=== PATIENT | female | born 1975 | race Caucasian/White ===

== ENCOUNTER 2023-05-08 11:27 | Outpatient (CLI) | payer OTHER, SELFPAY ==
[2023-05-08 11:51] LABS: Hematocrit 35.4 % (37.0-47.0); Hemoglobin 10.9 g/dL (12.0-15.0)
== END 2023-05-08 11:28 | disposition home or self-care (01) ==
LOC: ANHSURGERY 11:33
PROVIDERS: Visit Provider Student in an Organized Health Care Education/Training Program
DX: N93.9 Abnormal uterine and vaginal bleeding, unspecified (principal)
CPT/HCPCS: 36415; 85014; 85018

== ENCOUNTER 2023-05-14 00:10 | Day surgery (SDC) | payer OTHER, SELFPAY ==
[2023-05-04 15:28] VITALS: BMI 45.7
--- NOTE | 2023-05-04 15:33 | PC.NURSE ---
Report to the Outpatient Waiting Room, entrance under the green pavilion located off [facility], at time 10:45 on date 05/14/23. Planned Procedure Time: 12:45. Time changes happen often and if your time is changed the preop area will call you the afternoon before. - You and your visitor will be asked to self-screen and do not enter if you have any COVID symptoms. - A mask is optional within the hospital at this time. Patients may have clear liquids (water, carbonated beverages, clear teas, apple juice) until 3 hours prior to surgery (9:45) with a maximum of 20 ounces. - No food from midnight until time of surgery Take the following medications with a SIP of water the morning of surgery: TOPIRAMATE DO NOT STOP ANY OF YOUR OTHER PRESCRIPTION MEDICATIONS PRIOR TO SURGERY ?EXCEPT THE FOLLOWING Medications to discontinue per physician: VITAMINS/SUPPLEMENTS Date to take last dose: 05/10/23 Please no make-up, nail indonesian, hairspray, perfume, deodorant, or body powder the day of surgery. No jewelry (including any body piercings) or valuables the day of surgery, leave them at home. Please take a shower or bath the night before, or the morning of, surgery with an antibacterial soap. Wear comfortable, loose fitting clothing. - Jewelry must be removed prior to entering the operating room. Rings and piercings that are not removed may be cut off. - The hospital will not accept responsibility for valuables. - Please leave all valuables, including medications, at home the day of surgery. If you are going home after surgery, a licensed driver salesman must drive you home. - NO public transportation without another adult if you receive anesthesia. - We recommend that an adult stay with you for 24 hours following discharge. - We also recommend that you do not drive, make important decision, drink alcoholic beverages, or take any drugs that were not prescribed by your health care provider for at least 24 hours after your discharge time. Follow any additional instructions given to you from your surgeon. If you or anyone in your household have experienced Covid symptoms in the past week, please notify your surgeon or the nurse liaison at the phone number below for possible testing. Telephone instructions given to PT - MEHNAZ NORRIS and asked if any additional questions and then verbalized understanding. Patient advised to call surgeon office or pre surgery nurse liaison [phone] if any additional questions.
--- NOTE | 2023-05-13 14:56 | PM.IMHP ---
H&P: HPI History of Present Illness Date/Time: 05/13/23 14:56 Chief Complaint: abnormal uterine bleeding Narrative: 47-year-old female who presents for hysteroscopy D&C for abnormal uterine bleeding.? Patient suspected she was menopausal.? Patient had gone several years without any bleeding.? ? Patient had pelvic ultrasound which showed a thickened endometrium and a 2.5 cm fibroid Review of Systems Cardiovascular: Cardiovascular: Denies chest pain, Denies leg edema, Denies palpitations, Denies dyspnea and Denies dyspnea on exertion Respiratory: Respiratory: Denies cough, Denies dyspnea and Denies dyspnea on exertion Gastrointestinal: Gastrointestinal: Denies abdominal pain, Denies constipation, Denies diarrhea, Denies nausea and Denies vomiting Genitourinary: Genitourinary: Denies hematuria, Denies urinary frequency, Denies dysuria, Denies pelvic pain, Denies urinary incontinence and Denies vaginal discharge Neurologic: Reports system reviewed and no additional complaints, except as documented Psychiatric: Psychiatric: Reports no additional psychiatric complaints Endocrine: Endocrine: Denies palpitations PMFSH Past Medical History Medical History Ankylosing hyperostosis Surgical History Surgical History History of delivery Family History Family History Mother Hypertension Grandparent Breast cancer Diabetes mellitus Father Diabetes mellitus Social History Social History Smoking packs per day: 1 Smoking cigarettes per day: 20.0 Years smoked: 28 Smoking pack-years: 28.00 Smoking status: Former smoker Tobacco type: cigarettes Smoking end date: 08/03/16 Alcohol intake: never Substance use: current Substance use type: marijuana Lack of Transportation: No Lack of Food: Never True Current Housing: I Have Housing Concerned About Future Housing: No Difficulty Paying Gas/Electric Bills: No Difficulty Paying for Meds: No Currently Unemployed: No Education: High School Diploma/GED Difficulty w/ Childcare or Family Care: No Living arrangements: with family Additional living arrangements comments: MOM Occupation/Education: occupation Gender identity (if verbalized by the patient): Female Sexual Orientation (if Verbalized by the Patient): Straight or Heterosexual Spiritual care concerns: No Meds Home Medications and Allergies Home Medications Medication Instructions Recorded Confirmed Type etanercept 50 mg/mL (1 mL) 50 mg subcut WEEKLY 04/21/23 05/04/23 History subcutaneous pen injector (Enbrel SureClick) lurasidone 80 mg tablet 80 mg PO HS 04/21/23 05/04/23 History meloxicam 15 mg tablet 15 mg PO DAILY 04/21/23 05/04/23 History mirabegron 25 mg tablet,extended 25 mg PO HS 04/21/23 05/04/23 History release 24 hr (Myrbetriq) omeprazole 40 mg capsule,delayed 40 mg PO DAILY 04/21/23 05/04/23 History release rizatriptan 10 mg tablet 10 mg PO ONCE PRN Migraine Headache 04/21/23 05/04/23 History sertraline 100 mg tablet 100 mg PO HS 04/21/23 05/04/23 History topiramate 100 mg tablet 100 mg PO BID 04/21/23 05/04/23 History krill oil 500 mg capsule 500 mg PO DAILY 05/04/23 05/04/23 History rosuvastatin 5 mg tablet (Crestor) 5 mg PO DAILY 05/04/23 05/04/23 History Allergies Allergy/AdvReac Type Severity Reaction Status Date / Time aspirin AdvReac Mild Nausea Verified 05/13/23 14:40 Exam Const: General: no acute distress Eyes: EOM: EOMs intact bilaterally Neck: Neck: supple Thyroid: thyroid normal Chest: Breast/axilla inspection: normal inspection of the breasts Breast/axilla palpation: normal palpation of the breasts, normal palpation of the axillae and no axillary lymphadenopathy Resp: Effort & Inspection: norm
[2023-05-14] MEDS: ACETAMINOPHEN 500 MG TABLET 1000 MG PO (11:15)
--- NOTE | 2023-05-14 11:20 | WPDHPUPDATE1 ---
History and Physical Update Update Date/Time: 05/14/23 11:20 History and Physical has been reviewed, including an updated exam of the patient. There are NO changes in the patient's condition. Risks, benefits, and alternatives have been discussed and questions answered. Patient agrees to proceed with procedure.
--- NOTE | 2023-05-14 11:50 | WPDANESEPPF ---
Anes - Initial Pre Proc Eval Procedure: Operation Date: 05/14/23 12:45 Proposed Procedures p Hysteroscopy, Dilation and Curettage - Pasha Walters MD Date/Time: 05/14/23 11:50 Surgeon: Pasha Walters MD Pre Op Diagnosis: post menopausal bleeding Patient Data Age: 47 Gender: F Height: 1.74 m Weight: 138.35 kg Allergies Allergy/AdvReac Type Severity Reaction Status Date / Time aspirin AdvReac Mild Nausea Verified 05/13/23 14:40 Home Medications Medication Instructions Recorded Confirmed Type etanercept 50 mg/mL (1 mL) 50 mg subcut WEEKLY 04/21/23 05/04/23 History subcutaneous pen injector (Enbrel SureClick) lurasidone 80 mg tablet 80 mg PO HS 04/21/23 05/04/23 History meloxicam 15 mg tablet 15 mg PO DAILY 04/21/23 05/04/23 History mirabegron 25 mg tablet,extended 25 mg PO HS 04/21/23 05/04/23 History release 24 hr (Myrbetriq) omeprazole 40 mg capsule,delayed 40 mg PO DAILY 04/21/23 05/04/23 History release rizatriptan 10 mg tablet 10 mg PO ONCE PRN Migraine Headache 04/21/23 05/04/23 History sertraline 100 mg tablet 100 mg PO HS 04/21/23 05/04/23 History topiramate 100 mg tablet 100 mg PO BID 04/21/23 05/04/23 History krill oil 500 mg capsule 500 mg PO DAILY 05/04/23 05/04/23 History rosuvastatin 5 mg tablet (Crestor) 5 mg PO DAILY 05/04/23 05/04/23 History Patient hx anesthesia problems: none Family hx anesthesia problems: none Results Review: All pre-operative results and documents have been reviewed as part of the pre-operative evaluation. [facility] Past Medical History Medical History Ankylosing hyperostosis Surgical History Surgical History History of delivery Family History Family History Mother Hypertension Grandparent Breast cancer Diabetes mellitus Father Diabetes mellitus Social History Social History Smoking packs per day: 1 Smoking cigarettes per day: 20.0 Years smoked: 28 Smoking pack-years: 28.00 Smoking status: Former smoker Tobacco type: cigarettes Smoking end date: 08/03/16 Alcohol intake: never Substance use: current Substance use type: marijuana Lack of Transportation: No Lack of Food: Never True Current Housing: I Have Housing Concerned About Future Housing: No Difficulty Paying Gas/Electric Bills: No Difficulty Paying for Meds: No Currently Unemployed: No Education: High School Diploma/GED Difficulty w/ Childcare or Family Care: No Living arrangements: with family Additional living arrangements comments: MOM Occupation/Education: occupation Gender identity (if verbalized by the patient): Female Sexual Orientation (if Verbalized by the Patient): Straight or Heterosexual Spiritual care concerns: No Anes - Eval Final PreProcedure Day of Procedure 05/14/23 11:50 Patient weight: morbidly obese Heart: regular rate and rhythm Lungs: clear to auscultation Airway: Mallampati scale class III Neurological: alert and oriented Last oral intake: >/= 8 hours ASA classification: III Emergent: no Anesthetic plan: proceed Anesthesia type and monitoring: general GIVS (may use LMA if needed) Results Review: All pre-operative results and documents have been reviewed as part of the pre-operative evaluation. Informed Consent: The patient's anesthetic plan and its attendant risks and benefits were discussed with the patient/family/POA. Questions were solicited and answers provided to the satisfaction of the patient/family/POA.
[2023-05-14 11:58] VITALS: BP 148/78; PULSE 70; RESP 16; TEMP 36; O2SAT 99
[2023-05-14] MEDS: LACTATED RINGERS 1,000 ML 30 ML IV CONT (12:00)
--- NOTE | 2023-05-14 12:24 | P.OP_ITS ---
Procedure Note - Detailed Date of Procedure 05/14/23 Pre-op Diagnosis post menopausal bleeding Post-op Diagnosis Same Procedure Performed paracervical block hysteroscopy dilation & curettage Surgeon Pasha Walters MD Anesthesia General Indications abnormal uterine bleeding Findings Sharply anteverted uterus, difficult to access cervix. globally thickened endometrium with polypoid appearing masses. Description of Procedure Crissy Smith presents for the above procedure for abnormal uterine bleeding. She was counseled as to the indications, risks, benefits, and alternatives to surgery, with the risks including bleeding, infection, damage to surrounding organs, VTE, and complications of anesthesia. Her verbal and written consent was obtained. PROCEDURE: The patient was taken to the OR and general anesthesia induced. She was prepped and draped in Elvis stirrups with support of the back and bilateral lower extremities. I/O catheterization performed of the bladder. The above findings were noted. I nfiltration with 1% lidocaine at the 3 and 9 o'clock cervical positions was performed. A single tooth tenaculum was placed on the anterior lip of the cervix. Hysteroscopy, using a normal saline medium, was performed and showed the above findings. Sharp uterine curettage was then performed and tissue placed on Telfa. The tenaculum was removed and hemostasis was observed. The patient tolerated the procedure well. Sponge, lap, and needle counts were correct. The patient had SCD's on throughout the case for VTE prophylaxis. The patient was taken to the recovery room in stable condition. Estimated Blood Loss 10 Drains No Packing No Pathology Yes (endometrial curettings ) Complications No immediate complications Condition Stable Disposition PACU [facility] Billing Surgery - Charge Forward: Surgery Billing
[2023-05-14] MEDS: LIDOCAINE HCL 1% LOCAL INJ 20 ML VIAL 10 ML INFILTRATE (12:42)
[2023-05-14 12:55] VITALS: BP 146/61; PULSE 75; RESP 15; O2SAT 97
[2023-05-14 13:25] VITALS: BP 134/74; PULSE 63; RESP 15
[2023-05-14 13:55] VITALS: BP 130/71; PULSE 60; RESP 15
== END 2023-05-14 14:08 | disposition home or self-care (01) ==
PROVIDERS: Visit Provider Student in an Organized Health Care Education/Training Program
PROC: 0U5B8ZZ Destruction of Endometrium, Via Natural or Artificial Opening Endoscopic (ICD-10-PCS; CPT 58563; principal; 2023-05-14 12:45)
DX: N93.9 Abnormal uterine and vaginal bleeding, unspecified (principal); Z87.891 Personal history of nicotine dependence
CPT/HCPCS: 58558; 88305; A9270; J2250; J2405; J2704; J3010; J7120

== ENCOUNTER 2023-09-07 12:38 | Outpatient (CLI) | payer OTHER, SELFPAY ==
--- NOTE | 2023-09-07 13:07 | ECG_ITS ---
Measurements Intervals [place] Rate: 68 P: 21 DE: 143 QRS: 20 QRSD: 94 T: 47 QT: 382 QTc: 408 Interpretive Statements SINUS RHYTHM WITHIN NORMAL LIMITS NO PREVIOUS ECG AVAILABLE FOR COMPARISON Electronically Signed On 09-07-2023 16:59:34 RESEARCH TECH by Sanjay Rico M.D.
[2023-09-07 13:26] LABS: Hematocrit 41.3 % (37.0-47.0); Hemoglobin 12.9 g/dL (12.0-15.0); Mean Corpuscular HGB Conc 31.2 g/dl (32-36); Mean Corpuscular Hemoglobin 25.2 pg (26-34); Mean Corpuscular Volume 80.7 fl (80-100); Mean Platelet Volume 8.8 fl (7.4-10.4); Platelet Count Result 329 k/mm3 (150-375); Red Blood Count 5.12 M/mm3 (4.2-5.4); Red Cell Distribution Width 16.6 % (11.5-14.5)
== END 2023-09-07 12:39 | disposition home or self-care (01) ==
LOC: ANHSURGERY 12:44
PROVIDERS: Visit Provider Student in an Organized Health Care Education/Training Program
DX: E78.00 Pure hypercholesterolemia, unspecified (principal); N93.9 Abnormal uterine and vaginal bleeding, unspecified; Z01.818 Encounter for other preprocedural examination
CPT/HCPCS: 36415; 85027; 86850; 86900; 86901; 93005

== ENCOUNTER 2023-09-16 00:23 | Day surgery (SDC) | payer OTHER, SELFPAY ==
[2023-09-04 11:14] VITALS: BMI 43.5
--- NOTE | 2023-09-04 11:20 | PC.NURSE ---
Report to the Outpatient Waiting Room, entrance under the green pavilion located off [facility], at time 6:00 on date 09/16/23. Planned Procedure Time: 7:30. Time changes happen often and if your time is changed the preop area will call you the afternoon before. - You and your visitor will be asked to self-screen and do not enter if you have any COVID symptoms. - A mask is optional within the hospital at this time. Patients may have clear liquids (water, carbonated beverages, clear teas, apple juice) until 3 hours prior to surgery (4:30) with a maximum of 20 ounces. - No food from midnight until time of surgery Take the following medications with a SIP of water the morning of surgery: FLUOXETINE, LAMOTRIGINE, TOPIRAMATE, NORETHINDRONE DO NOT STOP ANY OF YOUR OTHER PRESCRIPTION MEDICATIONS PRIOR TO SURGERY ?EXCEPT THE FOLLOWING Medications to discontinue per physician: VITAMINS/SUPPLEMENTS Date to take last dose: 09/12/23 Please no make-up, nail south sudanese, hairspray, perfume, deodorant, or body powder the day of surgery. No jewelry (including any body piercings) or valuables the day of surgery, leave them at home. Please take a shower or bath the night before, or the morning of, surgery with an antibacterial soap. Wear comfortable, loose fitting clothing. - Jewelry must be removed prior to entering the operating room. Rings and piercings that are not removed may be cut off. - The hospital will not accept responsibility for valuables. - Please leave all valuables, including medications, at home the day of surgery. If you are going home after surgery, a licensed show horse driver must drive you home. - NO public transportation without another adult if you receive anesthesia. - We recommend that an adult stay with you for 24 hours following discharge. - We also recommend that you do not drive, make important decision, drink alcoholic beverages, or take any drugs that were not prescribed by your health care provider for at least 24 hours after your discharge time. Follow any additional instructions given to you from your surgeon. If you or anyone in your household have experienced Covid symptoms in the past week, please notify your surgeon or the nurse liaison at the phone number below for possible testing. Telephone instructions given to PT - MEHNAZ NORRIS and asked if any additional questions and then verbalized understanding. Patient advised to call surgeon office or pre surgery nurse liaison [phone] if any additional questions.
--- NOTE | 2023-09-15 08:02 | PM.IMHP ---
H&P: HPI History of Present Illness Date/Time: 09/15/23 08:02 Chief Complaint: Abnormal uterine bleeding Narrative: 47-year-old female who presents with complaint of abnormal uterine bleeding patient has been dealing with abnormal uterine bleeding for some time.? Patient is status post hysteroscopy D&C for abnormal bleeding.? Patient endometrial curettings were benign.? Patient currently taking progesterone only pill.? Patient states she continues to have breakthrough bleeding.? Patient states her bleeding profile will vary.? Some days are very heavy and others are light spotting.? Patient? states she is bleeding more days than.? Patient is requesting definitive therapy via hysterectomy. Review of Systems Cardiovascular: Cardiovascular: Denies chest pain, Denies leg edema, Denies palpitations, Denies dyspnea and Denies dyspnea on exertion Respiratory: Respiratory: Denies cough, Denies dyspnea and Denies dyspnea on exertion Gastrointestinal: Gastrointestinal: Denies abdominal pain, Denies constipation, Denies diarrhea, Denies nausea and Denies vomiting Genitourinary: Genitourinary: Denies hematuria, Denies urinary frequency, Denies dysuria, Denies pelvic pain, Denies urinary incontinence and Denies vaginal discharge Neurologic: Reports system reviewed and no additional complaints, except as documented Psychiatric: Psychiatric: Reports no additional psychiatric complaints Endocrine: Endocrine: Denies palpitations [facility] Past Medical History Medical History (Updated 09/02/23 @ 09:54 by Bree Milian CMA) Ankylosing hyperostosis Screening mammogram for breast cancer Surgical History Surgical History History of delivery History of hysteroscopy D & C Family History Family History Mother Hypertension Grandparent Breast cancer Diabetes mellitus Father Diabetes mellitus Social History Social History Smoking packs per day: 1 Smoking cigarettes per day: 20.0 Years smoked: 28 Smoking pack-years: 28.00 Smoking status: Never smoker Tobacco type: cigarettes Smoking end date: 08/03/16 Alcohol intake: never Substance use: current Substance use type: marijuana Lack of Transportation: No Lack of Food: Never True Current Housing: I Have Housing Concerned About Future Housing: No Difficulty Paying Gas/Electric Bills: No Difficulty Paying for Meds: No Currently Unemployed: No Education: High School Diploma/GED Difficulty w/ Childcare or Family Care: No Living arrangements: with family Additional living arrangements comments: MOM Occupation/Education: occupation Gender identity (if verbalized by the patient): Female Sexual Orientation (if Verbalized by the Patient): Straight or Heterosexual Spiritual care concerns: No Meds Home Medications and Allergies Home Medications Medication Instructions Recorded Confirmed Type etanercept 50 mg/mL (1 mL) 50 mg subcut WEEKLY 04/21/23 09/04/23 History subcutaneous pen injector (Enbrel SureClick) meloxicam 15 mg tablet 15 mg PO DAILY 04/21/23 09/04/23 History mirabegron 25 mg tablet,extended 25 mg PO HS 04/21/23 09/04/23 History release 24 hr (Myrbetriq) omeprazole 40 mg capsule,delayed 40 mg PO DAILY 04/21/23 09/04/23 History release rizatriptan 10 mg tablet 10 mg PO ONCE PRN Migraine Headache 04/21/23 09/04/23 History topiramate 100 mg tablet 100 mg PO BID 04/21/23 09/04/23 History krill oil 500 mg capsule 500 mg PO DAILY 05/04/23 09/04/23 History rosuvastatin 5 mg tablet (Crestor) 5 mg PO DAILY 05/04/23 09/04/23 History norethindrone (contraceptive) 0.35 0.35 mg PO DAILY #84 tabs 06/02/23 09/04/23 Rx mg tablet fluoxetine 40 mg capsule 40 mg PO DAILY 08/12/23 09/04/23 History lamotrigine 25 mg tablet 50 mg PO DAILY 08/12/23 09/04/23 History
--- NOTE | 2023-09-15 14:59 | WPDANESEPPF ---
Anes - Initial Pre Proc Eval Procedure: Operation Date: 09/16/23 07:30 Proposed Procedures p Robotic Assisted Total Laparoscopic Hysterectomy with Bilateral Salpingectomy - Pasha Walters MD Date/Time: 09/15/23 14:59 Surgeon: Pasha Walters MD Pre Op Diagnosis: abnormal uterine bleeding Patient Data Age: 47 Gender: F Height: 1.75 m Weight: 133.8 kg Allergies Allergy/AdvReac Type Severity Reaction Status Date / Time aspirin AdvReac Mild Nausea Verified 09/04/23 11:10 Home Medications Medication Instructions Recorded Confirmed Type etanercept 50 mg/mL (1 mL) 50 mg subcut WEEKLY 04/21/23 09/04/23 History subcutaneous pen injector (Enbrel SureClick) meloxicam 15 mg tablet 15 mg PO DAILY 04/21/23 09/04/23 History mirabegron 25 mg tablet,extended 25 mg PO HS 04/21/23 09/04/23 History release 24 hr (Myrbetriq) omeprazole 40 mg capsule,delayed 40 mg PO DAILY 04/21/23 09/04/23 History release rizatriptan 10 mg tablet 10 mg PO ONCE PRN Migraine Headache 04/21/23 09/04/23 History topiramate 100 mg tablet 100 mg PO BID 04/21/23 09/04/23 History krill oil 500 mg capsule 500 mg PO DAILY 05/04/23 09/04/23 History rosuvastatin 5 mg tablet (Crestor) 5 mg PO DAILY 05/04/23 09/04/23 History norethindrone (contraceptive) 0.35 0.35 mg PO DAILY #84 tabs 06/02/23 09/04/23 Rx mg tablet fluoxetine 40 mg capsule 40 mg PO DAILY 08/12/23 09/04/23 History lamotrigine 25 mg tablet 50 mg PO DAILY 08/12/23 09/04/23 History phentermine 37.5 mg capsule 37.5 mg PO DAILY 08/12/23 09/04/23 History ferrous sulfate 325 mg (65 mg 325 mg PO DAILY 09/04/23 09/04/23 History iron) tablet (Iron (ferrous sulfate)) Patient hx anesthesia problems: none Family hx anesthesia problems: none Results Review: All pre-operative results and documents have been reviewed as part of the pre-operative evaluation. [facility] Past Medical History Medical History (Updated 09/15/23 @ 14:59 by Teo Mina DO) Ankylosing hyperostosis Bipolar disorder Hyperlipidemia TORI (obstructive sleep apnea) Screening mammogram for breast cancer Surgical History Surgical History History of delivery History of hysteroscopy D & C Family History Family History Mother Hypertension Grandparent Breast cancer Diabetes mellitus Father Diabetes mellitus Social History Social History (Updated 09/16/23 @ 07:08 by Teo Mina DO) Smoking packs per day: 1 Smoking cigarettes per day: 20.0 Years smoked: 28 Smoking pack-years: 28.00 Smoking status: Never smoker Tobacco type: cigarettes Smoking end date: 08/03/16 Alcohol intake: never Substance use: current Substance use type: marijuana Other substance usage details: daily Lack of Transportation: No Lack of Food: Never True Current Housing: I Have Housing Concerned About Future Housing: No Difficulty Paying Gas/Electric Bills: No Difficulty Paying for Meds: No Currently Unemployed: No Education: High School Diploma/GED Difficulty w/ Childcare or Family Care: No Living arrangements: with family Additional living arrangements comments: MOM Occupation/Education: occupation Gender identity (if verbalized by the patient): Female Sexual Orientation (if Verbalized by the Patient): Straight or Heterosexual Spiritual care concerns: No Anes - Eval Final PreProcedure Day of Procedure 09/15/23 14:59 Patient weight: morbidly obese Heart: regular rate and rhythm Lungs: clear to auscultation Airway: Mallampati scale class II Neurological: alert and oriented Last oral intake: >/= 8 hours ASA classification: III Emergent: no Anesthetic plan: proceed Anesthesia type and monitoring: general ETT and standard monitoring Results Review: All pre-operative results and documents have been reviewed as part of t
[2023-09-16] VITALS (9 sets, daily range): BP systolic 121–159; BP diastolic 56–84; PULSE 64–85; RESP 10–19; TEMP 36.3–37.2; O2SAT 96–100
[2023-09-16] MEDS: LACTATED RINGERS 1,000 ML 30 ML IV CONT ×2 (06:45→09:45)
[2023-09-16] MEDS: ACETAMINOPHEN 500 MG TABLET 1000 MG PO (07:00)
[2023-09-16] MEDS: KETOROLAC 15 MG/ML VIAL (*BKC) IV PUSH (07:00)
[2023-09-16] MEDS: SCOPOLAMINE 1 MG PATCH 1 PATCH TRANSDERM (07:00)
--- NOTE | 2023-09-16 07:01 | WPDHPUPDATE1 ---
History and Physical Update Update Date/Time: 09/16/23 07:01 History and Physical has been reviewed, including an updated exam of the patient. There are NO changes in the patient's condition. Risks, benefits, and alternatives have been discussed and questions answered. Patient agrees to proceed with procedure.
[2023-09-16] MEDS: ceFAZolin 3 GM/D5W 100 ML 100 ML IVPB (07:30)
[2023-09-16] MEDS: LIDO 1%/EPINEPHRINE 1:100,000 50 ML VIAL 30 ML INFILTRATE (08:28)
--- NOTE | 2023-09-16 08:51 | W.PM.PROC2 ---
Procedure Note - Detailed Date of Procedure 09/16/23 Pre-op Diagnosis abnormal uterine bleeding Post-op Diagnosis Same Procedure Performed robotic assisted total laparoscopic hysterectomy and bilateral salpingectomy Surgeon Pasha Walters MD Anesthesia General Indications AUB Findings anterior uterine serosa adherent to the anterior abdominal wall, normal appearing bilateral fallopian tubes and ovaries, filmy bowel adhesions between the bowel and the right abdominal side wall Description of Procedure After the patient was appropriately consented she was taken to the operating room where she was transferred to the table in a dorsal supine position. General anesthesia was then induced with endotracheal intubation. The patient was transferred to a dorsal lithotomy position using adjustable yellow-fin stirrups. Her position was adjusted for appropriate support of her lower back and lower extremities. The patient was prepped and draped. A transurethral kelly catheter was place. The cervix was sequentially dilated and a SEGUNDO uterine manipulator placed in typical fashion about a 3cm SLIME ring. Gloves were changed. After confirmation of a functioning orogastric tube, lidocaine was injected at Mcgrath's point in the LUQ and a 5mm incision was made. A 5mm Optiview trocar was then inserted into the abdominal cavity under direct visualization and done so without complication. The abdomen was then insufflated with approximately 2-3L of CO2 establishing a pneumoperitoneum and the patient was placed in Trendelenburg position. Just above the umbilicus in the midline, a 8 mm incision made after injection of lidocaine and a 8 mm bladeless trocar advanced into the abdominal cavity under direct visualization without incident. We subsequently placed two robotic ports in a similar fashion, one in the left mid-quadrant and one in the right, 10cm lateral to the midline port. The robot was then docked. Attention was turned to the left pelvis. The anterior uterine serosa was noted to be adherent to the abdominal wall. This adhesion was taken down with monopolar scissors. The left fallopian tube was removed by sequentially dividing the mesosalpinx towards the uterus sparing the ovary. The utero-ovarian ligament was desiccated and transected, as was the round ligament. The posterior peritoneal leaf was taken down to the SLIME ring. The anterior leaf was developed as well as the start of the bladder flap. The left uterine artery was then skeletonized and desiccated and transected just above the level of the SLIME ring. Attention was turned to the right pelvis. The right fallopian tube was removed by sequentially dividing the mesosalpinx towards the uterus sparing the ovary. The utero-ovarian ligament was desiccated and transected, as was the round ligament. The posterior peritoneal leaf was taken down to the SLIME ring. The anterior leaf was developed as well as the start of the bladder flap. The right uterine artery was then skeletonized and desiccated and transected just above the level of the SLIME ring. The bladder was then further dissected inferiorly over the level of the SLIME ring. A circumferential colpotomy was made using monopolar current. The uterus, cervix, bilateral tubes were then delivered transvaginally. I then placed a single figure of eight suture of 0-vicryl in the left corner of the vaginal cuff. I then re-approximated the colpotomy with a running #1 PDO Quill suture in 2 layers. Following this dissection, the abdomen and pelvis were copiously irrigated and all surgical sites found to be hemostatic. Skin sites were reapproximated with 4-0 Vicryl in a subcuticular fashion. Steri-Strips were placed. The patient tolerated the procedure well. Sponge, needle and instrument counts were correct x 2 and the patient was taken to recovery in stable condition. Ancef was given for antimicrobial prophylaxis. The patient had SCD's on for VTE prophylaxis during the entire procedure. Ludivina
[2023-09-16] MEDS: fentaNYL CITRATE INJ (*CRX) 100 MCG/2 ML VIAL 25 MCG IV PUSH (09:27)
[2023-09-16] MEDS: ONDANSETRON INJ 4 MG/2 ML VIAL IV PUSH (09:47)
--- NOTE | 2023-09-16 12:14 | PC.NURSE ---
On 09/16/23, the student, Chiquis Lindsey, provided care and completed [facility] documentation on this patient. I have reviewed the student's documentation and agree with the findings.
[2023-09-16] MEDS: TOPIRAMATE 100 MG TABLET PO ×2 (13:52→21:35)
[2023-09-16] MEDS: SIMETHICONE 80 MG TAB.CHEW PO ×2 (13:52→21:42)
[2023-09-16] MEDS: MELOXICAM 7.5 MG TABLET 15 MG PO (14:28)
--- NOTE | 2023-09-16 14:30 | PC.NURSE ---
Kenny catheter discontinued 1430
[2023-09-16] MEDS: oxyCODONE/ACETAMINOPHEN (*CRX) 5-325 MG TABLET 1 TABLET PO ×2 (15:40→21:36)
[2023-09-16] MEDS: ROSUVASTATIN 5 MG TABLET PO (21:34)
[2023-09-16] MEDS: lamoTRIgine 50 MG TABLET PO (21:35)
[2023-09-16] MEDS: SENNA/DOCUSATE SODIUM TABLET 2 TAB PO (21:35)
[2023-09-16] MEDS: busPIRone HCL 10 MG TABLET PO (21:36)
[2023-09-17] MEDS: oxyCODONE/ACETAMINOPHEN (*CRX) 5-325 MG TABLET 1 TABLET PO ×2 (01:40→07:12)
[2023-09-17 04:00] VITALS: BP 128/60; PULSE 53; RESP 18; TEMP 36.4; O2SAT 99
[2023-09-17 04:44] LABS: Basophils Absolute Auto 0.1 K/mm3 (0.0-0.1); Basophils Percent Auto 0.3 % (0.2-1.2); Eosinophils Percent Auto 0.2 % (0-4.4); Hematocrit 39.8 % (37.0-47.0); Immature Granulocyte Absolute 0.09 K/mm3 (0.00-0.031); Immature Granulocyte Percent A 0.5 % (0-0.5); Immature Platelet Fraction Pct 2.7 % (0.9-11.2); Lymphocytes Absolute Auto 4.21 K/mm3 (0.9-3.2); Lymphocytes Percent Auto 23.1 % (18.3-44.2); Mean Corpuscular HGB Conc 30.2 g/dl (32-36); Mean Corpuscular Hemoglobin 25.2 pg (26-34); Mean Corpuscular Volume 83.6 fl (80-100); Mean Platelet Volume 9.5 fl (7.4-10.4); Monocytes Absolute Auto 1.3 K/mm3 (0.1-0.6); Monocytes Percent Auto 6.8 % (2.6-8.5); Neutrophils Absolute Auto 12.6 K/mm3 (1.3-6.7); Neutrophils Percent Auto 69.1 % (45.5-73.1); Platelet Count Result 282 k/mm3 (150-375); Red Blood Count 4.76 M/mm3 (4.2-5.4); Red Cell Distribution Width 16.2 % (11.5-14.5); White Blood Count 18.3 K/mm3 (4.5-10.0)
[2023-09-17 04:51] LABS: Anion Gap 9 mmol/L (8-16); Blood Urea Nitrogen 13 mg/dL (7-17); Calcium 9.3 mg/dL (8.4-10.2); Carbon Dioxide 23 mmol/L (22-30); Chloride 109 mmol/L (98-107); Estimated CRCL calculation 100 ml/min; Estimated Glomerular Filt Rate > 60; Glucose 104 mg/dL (65-110); Sodium 141 mmol/L (137-145)
--- NOTE | 2023-09-17 08:11 | PM.DS ---
DS: Admitting Diagnosis Discharge Date 09/17/23 Admitting Diagnosis abnormal uterine bleeding DS: Discharge Diagnosis Discharge Diagnosis (1) Abnormal uterine bleeding: Code(s): N93.9 - Abnormal uterine and vaginal bleeding, unspecified Status: Acute DS: Summary Hospital Course Hospital Course: Patient was admitted after robotic assisted total laparoscopic hysterectomy and bilateral salpingectomy for abnormal uterine bleeding. The above procedure was performed with no complications. She is doing well post op. She states her pain is well controlled with PO medications. She reports minimal bleeding. She is ambulating up to the chair. Her kelly catheter was removed. She is tolerating PO without N/V. She reports passing flatus. Status at Discharge Overall status at discharge: patient is progressing back to baseline Time Spent with Patient Time attestation: Total time spent providing and/or coordinating discharge services: Time spent: Less than 30 minutes Exam Const: General: comfortable and no acute distress Limitations: no limitations Resp: Effort & Inspection: normal respiratory effort Auscultation: clear to auscultation bilaterally Cardio: Rate: regular rate Rhythm: regular rhythm GI: Inspection: non-distended GI Palp: Yes Soft to palpation, Yes Tenderness to palpation present (GI) (milder tenderness to deep palpation) and No Guarding due to palpation present (GI) Auscultation: normal bowel sounds Other: incisions C/D/I covered with dermabond Urinary Catheter: Urinary Catheter: urine clear Skin: General skin exam: normal color Extrem: General: normal to inspection Psych: Mental Status: mental status grossly normal Affect: normal affect DS: Data Data Completed and Pending Pending studies at discharge: Pending at discharge 09/16/23 08:36 Surgical [PTH] Routine Labs on day of discharge: Labs from last 24 hours 09/17/23 03:51 WBC 18.3 H RBC 4.76 Hgb 12.0 Hct 39.8 MCV 83.6 MCH 25.2 L MCHC 30.2 L RDW 16.2 H Plt Count 282 MPV 9.5 Immature Gran % (Auto) 0.5 Neut % (Auto) 69.1 Lymph % (Auto) 23.1 [place] % (Auto) 6.8 Eos % (Auto) 0.2 Baso % (Auto) 0.3 Lymph # (Auto) 4.21 H [place] # (Auto) 1.3 H Eos # (Auto) 0.0 Baso # (Auto) 0.1 Abs Immat Gran (auto) 0.09 H Absolute Neuts (auto) 12.6 H Absolute Nucleated RBC 0.0 Nucleated RBC % 0.0 % Immature Plt Fraction 2.7 Sodium 141 Potassium 4.0 Chloride 109 H Carbon Dioxide 23 Anion Gap 9 BUN 13 Creatinine 0.90 Estim Creat Clear Calc 100 Estimated GFR > 60 Glucose 104 Calcium 9.3 Discharge Plan Discharge Patient Disposition: Home, Self-Care Patient Instructions: Laparoscopic Hysterectomy (DC) Stand Alone Forms: General Discharge Instructions Follow-up/Referrals: Pasha Walters MD [Physician] - 2 Weeks Discharge Medications: New oxycodone-acetaminophen 5-325 mg tablet 1 tablet PO Q6H PRN (Reason: pain) Qty: 28 0RF Continued topiramate 100 mg tablet 100 mg PO BID omeprazole 40 mg capsule,delayed release(DR/EC) 40 mg PO DAILY Myrbetriq 25 mg tablet extended release 24 hr 25 mg PO HS Enbrel SureClick 50 mg/mL (1 mL) pen injector 50 mg subcut WEEKLY Patient Comments: PT TAKES ON THURSDAY meloxicam 15 mg tablet 15 mg PO DAILY rizatriptan 10 mg tablet 10 mg PO ONCE PRN (Reason: Migraine Headache) phentermine 37.5 mg capsule 37.5 mg PO DAILY fluoxetine 40 mg capsule 40 mg PO DAILY lamotrigine 25 mg tablet 50 mg PO DAILY rosuvastatin [Crestor] 5 mg Tablet 5 mg PO DAILY krill oil 500 mg Capsule 500 mg PO DAILY ferrous sulfate [Iron (ferrous sulfate)] 325 mg (65 mg iron) Tablet 325 mg PO DAILY norethindrone (contraceptive) 0.35 mg tablet 0.35 mg PO DAILY Qty: 84 3RF
[2023-09-17 09:00] VITALS: BP 114/53; PULSE 60; RESP 18; TEMP 36.9; O2SAT 99
--- NOTE | 2023-09-17 10:12 | WPDANESPN ---
Anes - Prog Note Post-Op Date/Time: 09/17/23 10:12 Cardiovascular status: normal Respiratory status: normal Airway patency: baseline Mental status: baseline Post-Op hydration status: normal Vital Signs: Last Vital Signs Temp 36.9 C 09/17/23 09:00 Pulse 60 09/17/23 09:00 Resp 18 09/17/23 09:00 BP 114/53 L 09/17/23 09:00 Pulse Ox 99 09/17/23 09:00 O2 Del Method Room Air 09/17/23 07:00 O2 Flow Rate 8 09/16/23 09:20 Pain Score (VAS): 11/10 I/O: Intake & Output 09/16/23 09/17/23 09/17/23 23:59 07:59 15:59 Output Total 600 Balance -600 Laboratory Tests 09/17/23 03:51 09/17/23 03:51 09/17/23 03:51 WBC 18.3 H RBC 4.76 Hgb 12.0 Hct 39.8 MCV 83.6 MCH 25.2 L MCHC 30.2 L RDW 16.2 H Plt Count 282 MPV 9.5 Immature Gran % (Auto) 0.5 Neut % (Auto) 69.1 Lymph % (Auto) 23.1 [place] % (Auto) 6.8 Eos % (Auto) 0.2 Baso % (Auto) 0.3 Lymph # (Auto) 4.21 H [place] # (Auto) 1.3 H Eos # (Auto) 0.0 Baso # (Auto) 0.1 Abs Immat Gran (auto) 0.09 H Absolute Neuts (auto) 12.6 H Absolute Nucleated RBC 0.0 Nucleated RBC % 0.0 % Immature Plt Fraction 2.7 Sodium 141 Potassium 4.0 Chloride 109 H Carbon Dioxide 23 Anion Gap 9 BUN 13 Creatinine 0.90 Estim Creat Clear Calc 100 Estimated GFR > 60 Glucose 104 Calcium 9.3 Post-procedural complaints: none Patient Feedback: Patient satisfied with anesthetic care.
[2023-09-17] MEDS: busPIRone HCL 10 MG TABLET PO (10:23)
[2023-09-17] MEDS: TOPIRAMATE 100 MG TABLET PO (10:23)
[2023-09-17] MEDS: MELOXICAM 7.5 MG TABLET 15 MG PO (10:23)
[2023-09-17] MEDS: lamoTRIgine 25 MG TABLET PO (10:23)
[2023-09-17] MEDS: PANTOPRAZOLE 40 MG TABLET PO (10:24)
[2023-09-17] MEDS: FLUoxetine HCL 20 MG CAPSULE 60 MG PO (10:24)
== END 2023-09-17 10:52 | disposition home or self-care (01) ==
LOC: ANHSURGERY 06:05 → ANHOB2 11:15
PROVIDERS: Visit Provider Student in an Organized Health Care Education/Training Program
PROC: (CPT 58571; principal; 2023-09-16 07:30)
DX: D25.2 Subserosal leiomyoma of uterus (principal); N93.9 Abnormal uterine and vaginal bleeding, unspecified; N87.9 Dysplasia of cervix uteri, unspecified; N83.8 Other noninflammatory disorders of ovary, fallopian tube and broad ligament; E78.5 Hyperlipidemia, unspecified; G47.33 Obstructive sleep apnea (adult) (pediatric); F31.9 Bipolar disorder, unspecified; M48.10 Ankylosing hyperostosis [Forestier], site unspecified; Z87.891 Personal history of nicotine dependence; F12.90 Cannabis use, unspecified, uncomplicated; E66.01 Morbid (severe) obesity due to excess calories; Z68.41 Body mass index [BMI] 40.0-44.9, adult
CPT/HCPCS: 58571; S2900; 36415; 80048; 85025; 85055; 88307; 99199; A9270; J0330; J0690; J1100; J1170; J1885; J2250; J2405; J2704; J3010; J7030; J7120

== ENCOUNTER 2023-09-25 21:12 | Emergency (ER) | payer OTHER, SELFPAY ==
--- NOTE | ~2023-09-25 | CT_ITS ---
EXAMINATION: CT abdomen pelvis w con DATE: 09/26/2023 09:02 INDICATION: Generalized weakness. Abdominal pain post hysterectomy. Hysterectomy on 09/16/2023. TECHNIQUE: Computed tomography (CT) of the abdomen and pelvis was performed with 100 cc Omnipaque 350 intravenous contrast. The dose-length product was 1519.41 mGy-cm. Automated exposure control and ite rative reconstruction technique were employed. COMPARISON: None. FINDINGS: Lung bases are unremarkable. Heart size normal. No significant pleural or pericardial effus ion. There is free intraperitoneal air, consistent with recent surgery. Status post hysterectomy. Sma ll amount of residual fluid in the pelvis. No abscess. The liver, spleen, pancreas, adrenal glands and kidneys are unremarkable. Gallbladder is present. Non obstructive bowel pattern. Small fat-containing umbilical hernia. No acute osseous abnormality. Moder ate lumbar spondylosis. Gallbladder is present. No significant vascular abnormality. No lymphadenopat hy. IMPRESSION: 1. Small amount of free air and free fluid, likely postoperative. No abscess. Reviewed, dictated and finalized at location A. O CONSULTANT
[2023-09-25 21:18] VITALS: BP 140/84; PULSE 80; RESP 16; TEMP 36.6; O2SAT 98
[2023-09-26 07:20] VITALS: BP 150/84; PULSE 74; RESP 16; TEMP 36.3; O2SAT 99
--- NOTE | 2023-09-26 07:53 | ED.GENADULT ---
HPI - General Adult General Chief complaint: Skin/Abscess/Foreign Body Stated complaint: infected sutures, on abx, not helping Time Seen by Provider: 09/26/23 06:57 History of Present Illness HPI narrative: 47-year-old female presented to the ED for evaluation for possible staph infection. Patient did have a laparoscopic hysterectomy done Diet[facility]' by Dr. Walters. The patient had follow-up with her primary care physician for an unrelated issue and she asked them to evaluate her incisions. Patient was started on antibiotics on for concern of impetigo. Patient states he is still having increased generalized weakness and some abdominal discomfort. Patient has been taking her doxycycline. Related Data Home Medications Medication Instructions Recorded Confirmed etanercept 50 mg/mL (1 mL) 50 mg subcut WEEKLY 04/21/23 09/16/23 subcutaneous pen injector (Enbrel SureClick) meloxicam 15 mg tablet 15 mg PO DAILY 04/21/23 09/16/23 mirabegron 25 mg tablet,extended 25 mg PO HS 04/21/23 09/16/23 release 24 hr (Myrbetriq) omeprazole 40 mg capsule,delayed 40 mg PO DAILY 04/21/23 09/16/23 release rizatriptan 10 mg tablet 10 mg PO ONCE PRN Migraine Headache 04/21/23 09/16/23 topiramate 100 mg tablet 100 mg PO BID 04/21/23 09/16/23 krill oil 500 mg capsule 500 mg PO DAILY 05/04/23 09/16/23 rosuvastatin 5 mg tablet (Crestor) 5 mg PO DAILY 05/04/23 09/16/23 fluoxetine 40 mg capsule 40 mg PO DAILY 08/12/23 09/16/23 lamotrigine 25 mg tablet 50 mg PO DAILY 08/12/23 09/16/23 phentermine 37.5 mg capsule 37.5 mg PO DAILY 08/12/23 09/16/23 ferrous sulfate 325 mg (65 mg 325 mg PO DAILY 09/04/23 09/16/23 iron) tablet (Iron (ferrous sulfate)) Allergies Allergy/AdvReac Type Severity Reaction Status Date / Time aspirin AdvReac Mild Nausea Verified 09/04/23 11:10 hydrocodone AdvReac Agitated Verified 09/16/23 09:36 Review of Systems Review of Systems: All systems reviewed & are unremarkable except as noted in HPI and below PMFSH Past Medical History Medical History (Updated 09/26/23 @ 09:31 by Rolando Gentile MD) Ankylosing hyperostosis Bipolar disorder Hyperlipidemia TORI (obstructive sleep apnea) Screening mammogram for breast cancer Surgical History Surgical History History of delivery History of hysteroscopy D & C Family History Family History Mother Hypertension Grandparent Breast cancer Diabetes mellitus Father Diabetes mellitus Social History Social History (Updated 09/16/23 @ 07:08 by Teo Mina DO) Smoking packs per day: 1 Smoking cigarettes per day: 20.0 Years smoked: 28 Smoking pack-years: 28.00 Smoking status: Never smoker Tobacco type: cigarettes Smoking end date: 08/03/16 Alcohol intake: never Substance use: current Substance use type: marijuana Other substance usage details: daily Lack of Transportation: No Lack of Food: Never True Current Housing: I Have Housing Concerned About Future Housing: No Difficulty Paying Gas/Electric Bills: No Difficulty Paying for Meds: No Currently Unemployed: No Education: High School Diploma/GED Difficulty w/ Childcare or Family Care: No Living arrangements: with family Additional living arrangements comments: MOM Occupation/Education: occupation Gender identity (if verbalized by the patient): Female Sexual Orientation (if Verbalized by the Patient): Straight or Heterosexual Spiritual care concerns: No Exam Narrative: APPEARANCE: Well appearing, no pain, no distress, well-nourished. HEAD: normocephalic, atraumatic. EYES: PERRLA/EOMI, conjunctivae clear. NOSE: Normal no drainage EARS:TMS clear with good light reflex. THROAT: Pharynx clear, no exudate. NECK: Supple. No adenopathy, no masses. RESPIRATORY: Airway patent, respirations nonlabored. Clear to auscu
[2023-09-26 08:29] LABS: Basophils Absolute Auto 0.1 K/mm3 (0.0-0.1); Basophils Percent Auto 0.7 % (0.2-1.2); Eosinophils Absolute Auto 0.5 K/mm3 (0-0.3); Eosinophils Percent Auto 3.3 % (0-4.4); Hematocrit 40.3 % (37.0-47.0); Hemoglobin 12.5 g/dL (12.0-15.0); Immature Granulocyte Absolute 0.07 K/mm3 (0.00-0.031); Immature Granulocyte Percent A 0.5 % (0-0.5); Lymphocytes Absolute Auto 4.33 K/mm3 (0.9-3.2); Mean Corpuscular Hemoglobin 25.5 pg (26-34); Mean Corpuscular Volume 82.1 fl (80-100); Mean Platelet Volume 8.9 fl (7.4-10.4); Monocytes Percent Auto 6.6 % (2.6-8.5); Neutrophils Percent Auto 59.9 % (45.5-73.1); Platelet Count Result 341 k/mm3 (150-375); Red Blood Count 4.91 M/mm3 (4.2-5.4); Red Cell Distribution Width 15.9 % (11.5-14.5); White Blood Count 14.9 K/mm3 (4.5-10.0)
[2023-09-26 08:39] LABS: Alanine Aminotransferase 18 U/L (6-35); Albumin Level 4.1 g/dL (3.5-5.1); Alkaline Phosphatase 92 U/L (38-126); Anion Gap 10 mmol/L (8-16); Aspartate Amino Transferase 26 U/L (14-36); Bilirubin,Total 0.5 mg/dL (0.2-1.3); Blood Urea Nitrogen 15 mg/dL (7-17); Calcium 9.1 mg/dL (8.4-10.2); Carbon Dioxide 19 mmol/L (22-30); Chloride 107 mmol/L (98-107); Estimated CRCL calculation 152 ml/min; Estimated Glomerular Filt Rate > 60; Glucose 97 mg/dL (65-110); Lipase 135 U/L (23-300); Potassium 3.3 mmol/L (3.4-5.0); Sodium 136 mmol/L (137-145)
[2023-09-26 08:41] LABS: Lactic Acid Reflex 0.8 mmol/L (0.7-2.0)
[2023-09-26 09:10] LABS: Influenza A QL RT-PCR Negative (Negative); Influenza B QL RT-PCR Negative (Negative); RSV RNA, RT-PCR Negative (Negative); SARS-CoV-2 RNA PCR Negative (Negative)
[2023-09-26 10:15] VITALS: BP 146/74; PULSE 78; RESP 18; O2SAT 98
== END 2023-09-26 10:15 | disposition home or self-care (01) ==
PROVIDERS: Emergency Provider Emergency Medicine
DX: L01.00 Impetigo, unspecified (principal); R10.9 Unspecified abdominal pain; Z98.890 Other specified postprocedural states; Z20.822 Contact with and (suspected) exposure to COVID-19; E78.5 Hyperlipidemia, unspecified; G47.33 Obstructive sleep apnea (adult) (pediatric); Z87.891 Personal history of nicotine dependence; Z90.710 Acquired absence of both cervix and uterus
CPT/HCPCS: 36415; 74177; 80053; 83605; 83690; 85025; 87637; 99284; Q9967

== ENCOUNTER 2023-10-12 16:15 | Outpatient (CLI) | payer OTHER, SELFPAY ==
--- NOTE | ~2023-10-12 | US_ITS ---
EXAMINATION: US pelvic complete DATE: 10/12/2023 17:41 INDICATION: Postprocedural hemorrhage TECHNIQUE: Multiple transabdominal sonographic images of the pelvis were obtained. COMPARISON: None. FINDINGS: Uterus: Surgically absent uterus. No abnormality detected in the surgical bed. Right Ovary: Not visualized. Left Ovary: Not visualized. There is no free fluid in the pelvis. IMPRESSION: Status post hysterectomy. No sonographic abnormality detected in the surgical bed. No free fluid. Ova quincy not visualized in this transabdominal examination. Reviewed, dictated and finalized at location K. IMPRESSION: Status post hysterectomy. No sonographic abnormality detected in the surgical b ed. No free fluid. Ovaries not visualized in this transabdominal examination.
== END 2023-10-12 16:16 | disposition home or self-care (01) ==
LOC: ANHIMG 16:15
PROVIDERS: Visit Provider Student in an Organized Health Care Education/Training Program
DX: N99.820 Postprocedural hemorrhage of a genitourinary system organ or structure following a genitourinary system procedure (principal)
CPT/HCPCS: 76856

== ENCOUNTER 2024-07-24 16:45 | Emergency (ER) | payer OTHER, SELFPAY ==
--- NOTE | ~2024-07-24 | CT_ITS ---
EXAMINATION: CT diagnostic chest wo con DATE: 07/24/2024 21:20 INDICATION: Right rib pain TECHNIQUE: Computed tomography (CT) of the chest was performed without intravenous contrast. Automate d exposure control and iterative reconstruction technique were employed. Exam dose: 1067.03 mGy-cm t otal exam DLP. COMPARISON: 07/24/2024 PA chest and right RIBS FINDINGS: Normal heart size. No pericardial or pleural effusion. Normal diameter of the thoracic aorta. No hilar or mediastinal mass lesion or lymphadenopathy. Azygos lobe, normal variant. The lungs are clear. Included upper abdominal structures are unremarkable including both adrenal glands. No rib fractures are noted. No suspicious osteolytic or osteoblastic lesions. IMPRESSION: No rib fractures Reviewed, dictated and finalized at [facility]. Reviewed, dictated and finalized at location A. MACY SPECIALIST IMPRESSION: No rib fractures
--- NOTE | ~2024-07-24 | XR_ITS ---
[id number] DATE: 07/24/2024 17:55 INDICATION: Rib pain for 2 weeks TECHNIQUE: PA chest. 4 views of the right ribs. COMPARISON: None FINDINGS: Azygos lobe, normal variant. Normal heart size. No hilar or mediastinal enlargement. No pulmonary infiltrate or consolidation, pleural effusion or pulmonary vascular congestion or pneumo thorax. No right rib fracture or bone destruction is detected. IMPRESSION: No active cardiac pulmonary disease No significant radiographic abnormality of the right ribs Reviewed, dictated and finalized at [facility]. Reviewed, dictated and finalized at location A. WAITER/WAITRESS
[2024-07-24 16:47] VITALS: BP 178/64; PULSE 79; RESP 15; TEMP 36.8; O2SAT 98
[2024-07-24 17:17] VITALS: RESP 20
[2024-07-24] MEDS: HYDROmorphone HCL INJ (*CRX) 1 MG/ML SYR IM (18:37)
[2024-07-24] MEDS: methocarbamoL 750 MG TABLET 1500 MG PO (20:36)
[2024-07-24] MEDS: KETOROLAC 30 MG/ML VIAL (*BKC) IM (20:37)
--- NOTE | 2024-07-24 21:26 | ED.GENADULT ---
HPI - General Adult General Chief complaint: Unspecified Stated complaint: R rib pain x 1 week. Time Seen by Provider: 07/24/24 17:33 History of Present Illness HPI narrative: 48-year-old female presenting to the emergency department for right-sided rib pain. She states that she ran into a shelf about 1 week prior and hurt her ribs. She had immediate pain sensation in the right upper rib cage since this happened. She has been having some worsening pain especially with the breathing. No new injuries or trauma. She has tried conservative therapy medications and ice pack. She states that she is having worsening pain in this area despite this. Denies any chest pain otherwise, no nausea vomiting, difficulty breathing, fever, chills, abdominal pain or back pain. She has otherwise been able to go work and has no other injuries or recent illnesses. Patient denies any other potential causes. Related Data Home Medications ?Medication ?Instructions ?Recorded ?Confirmed ?Last Taken ?Type etanercept 50 mg/mL (1 mL) 50 mg subcut WEEKLY 04/21/23 10/28/23 09/13/23 History subcutaneous pen injector (Enbrel SureClick) meloxicam 15 mg tablet 15 mg PO DAILY 04/21/23 10/28/23 09/13/23 History mirabegron 25 mg tablet,extended 25 mg PO HS 04/21/23 10/28/23 09/15/23 21:00 History release 24 hr (Myrbetriq) omeprazole 40 mg capsule,delayed 40 mg PO DAILY 04/21/23 10/28/23 09/15/23 06:00 History release rizatriptan 10 mg tablet 10 mg PO ONCE PRN Migraine Headache 04/21/23 10/28/23 09/15/23 06:00 History topiramate 100 mg tablet 100 mg PO BID 04/21/23 10/28/23 09/15/23 21:00 History krill oil 500 mg capsule 500 mg PO DAILY 05/04/23 10/28/23 09/13/23 History rosuvastatin 5 mg tablet (Crestor) 5 mg PO DAILY 05/04/23 10/28/23 09/15/23 06:00 History buspirone 10 mg tablet 10 mg PO 09/30/23 10/28/23 Unknown History fluoxetine 40 mg capsule 60 mg PO DAILY 09/30/23 10/28/23 Unknown History lamotrigine 25 mg tablet 100 mg PO DAILY 09/30/23 10/28/23 Unknown History Allergies Allergy/AdvReac Type Severity Reaction Status Date / Time aspirin AdvReac Mild Nausea Verified 07/24/24 17:19 hydrocodone AdvReac Agitated Verified 07/24/24 17:19 Review of Systems Review of Systems: As reviewed [facility] in [facility] Past Medical History Medical History Bipolar disorder TORI (obstructive sleep apnea) Hyperlipidemia Screening mammogram for breast cancer Ankylosing hyperostosis Surgical History Surgical History H/O: hysterectomy History of hysteroscopy D & C History of delivery Family History Family History Mother Hypertension Grandparent Breast cancer Diabetes mellitus Father Diabetes mellitus Social History Social History Smoking packs per day: 1 Smoking cigarettes per day: 20.0 Years smoked: 28 Smoking pack-years: 28.00 Smoking status: Never smoker Tobacco type: cigarettes Smoking end date: 08/03/16 Alcohol intake: never Substance use: current Substance use type: marijuana Other substance usage details: daily Lack of Transportation: No Lack of Food: Never True Current Housing: I Have Housing Concerned About Future Housing: No Difficulty Paying Gas/Electric Bills: No Difficulty Paying for Meds: No Currently Unemployed: No Education: High School Diploma/GED Difficulty w/ Childcare or Family Care: No Living arrangements: with family Additional living arrangements comments: MOM Occupation/Education: occupation Gender identity (if verbalized by the patient): Female Sexual Orientation (if Verbalized by the Patient): Straight or Heterosexual Spiritual care concerns: No Exam Narrative: GENERAL: [Well-appearing, well-nourished, and in no acute distress.] HEAD: [Normocephalic, atraumatic.] EYES: [PERRLA and EOMI.] ENT: Nares clear, no rhinorrhea or epistaxis. Mucous membranes moist. NECK: Supple. CHEST: [Clear to auscultation. No respiratory distress.] Focal tenderness to palpation over the right-sided ribcage near ribs 6 and 7 anterior lateral but no overlying step-offs deformities or obvious fractures. Clear breath sounds throughout all lung dejesus, no diminished breath sounds. HEART: [Regular rate and rhythm]. No murmur heard. [Normal peripheral pulses.] ABDOMEN: [Soft, nondistended], [nontender], [No rigidity or guarding] EXTREMITIES: Normal range of motion. [No edema.] SKIN: Warm, dry, no rash. NEURO: [No focal deficits]. Alert and oriented [x3.] PSYCH: [Normal mood and affect.] Course Vital Signs Vital signs: Vital Signs Temperature 36.8 C 07/24/24 16:47 Pulse Rate 79 07/24/24 16:47 Respiratory Rate 15 07/24/24 16:47 Blood Pressure 178/64 H 07/24/24 16:47 Pulse Oximetry 98 07/24/24 16:47 Oxygen Delivery Room Air 07/24/24 16:47 Temperature 36.8 C 07/24/24 16:47 Pulse Rate 79 07/24/24 16:47 Respiratory Rate 20 07/24/24 17:17 Blood Pressure 178/64 H 07/24/24 16:47 Pulse Oximetry 98 07/24/24 16:47 Oxygen Delivery Room Air 07/24/24 16:47 Medical Decision Making MDM Narrative Medical decision making narrative: 48-year-old female presenting for evaluation of potential broken rib. She states she ran into a shelf at work about 1 week prior she has been having pain in her right-sided ribcage since. She had a sharp corner that she hit with her right-sided chest near ribs 6 and 7 laterally. She states that her state deep breath and feels like her potentially something moving her ribs. Denies any fever, chills, chest pain otherwise, difficulty breathing, headache, vision, back pain or abdominal pain. She is in soft nontender abdomen, no overlying skin changes or palpable deformity. She is slightly hypertensive but no other vital concerns such as tachypnea, tachycardia, fever hypoxia. Considerations presently are for rib contusion, rib fracture or less likely intrathoracic processes pneumothorax or hemothorax. Will obtain x-ray imaging and provider analgesia with intramuscular Dilaudid and ice pack. I independently reviewed x-ray and did not see any, pneumothorax, hemothorax, consolidation or any contusion in the area of question. Confirmed by Radiology. X-ray shows no acute osseous process or rib fracture. Patient still having acute pain at this time although improved. She is given additional dose of Dilaudid and Robaxin at this time and CT thorax with attention to the ribs was ordered for better delineation. CT thorax confirmed shows no rib fractures. Patient at this time is stable for discharge home with conservative therapies including NSAIDs, Tylenol, ice, lidocaine patches and return precautions. Medical Records Medical records reviewed: Yes I reviewed the external patient's medical records. Vital Signs Vital Signs: Vital Signs Temperature 36.8 C 07/24/24 16:47 Pulse Rate 79 07/24/24 16:47 Respiratory Rate 15 07/24/24 16:47 Blood Pressure 178/64 H 07/24/24 16:47 Pulse Oximetry 98 07/24/24 16:47 Oxygen Delivery Room Air 07/24/24 16:47 Temperature 36.8 C 07/24/24 16:47 Pulse Rate 79 07/24/24 16:47 Respiratory Rate 20 07/24/24 17:17 Blood Pressure 178/64 H 07/24/24 16:47 Pulse Oximetry 98 07/24/24 16:47 Oxygen Delivery Room Air 07/24/24 16:47 Imaging Data Attestation: I personally reviewed and interpreted this imaging study as follows: My impression: Impressions Ribs w/Chest X-Ray 07/24/24 18:01 IMPRESSION: No active cardiac pulmonary disease No significant radiographic abnormality of the right ribs Chest CT 07/24/24 21:21 IMPRESSION: No rib fractures Discharge Plan Discharge Clinical Impression: Contusion of rib on right side Patient Disposition: Home, Self-Care Condition: Stable Instructions: Antibiotic Form, Rib Contusion (ED) Additional Instructions: Your chest x-ray and CT scan shows no rib fractures, no lung contusions, no deflated lungs or any injury to the chest other than your bruise to the rib. We will send you home with pain medications and incentive spirometry to keep symptoms controlled. Follow-up with your regular doctor on outpatient basis. Return with any new or worsening concerns at any time. Patient Language: Portuguese Prescriptions: New ketorolac 10 mg tablet 10 mg PO Q8H PRN (Reason: pain) 5 Days Qty: 20 0RF Rx Instructions: maximum total duration of 5 days from all oral, intranasal, or parenteral formulations methocarbamol 750 mg tablet 750 mg PO TID PRN (Reason: pain) Qty: 20 0RF lidocaine 5 % adhesive patch,medicated 1 patch topical DAILY Qty: 15 0RF Rx Instructions: leave on most painful area for up to 12 hrs No Action topiramate 100 mg tablet 100 mg PO BID omeprazole 40 mg capsule,delayed release(DR/EC) 40 mg PO DAILY Myrbetriq 25 mg tablet extended release 24 hr 25 mg PO HS Enbrel SureClick 50 mg/mL (1 mL) pen injector 50 mg subcut WEEKLY Patient Comments: PT TAKES ON THURSDAY meloxicam 15 mg tablet 15 mg PO DAILY rizatriptan 10 mg tablet 10 mg PO ONCE PRN (Reason: Migraine Headache) fluoxetine 40 mg capsule 60 mg PO DAILY lamotrigine 25 mg tablet 100 mg PO DAILY buspirone 10 mg tablet 10 mg PO rosuvastatin [Crestor] 5 mg Tablet 5 mg PO DAILY krill oil 500 mg Capsule 500 mg PO DAILY Follow-up/Referrals: PHYSICIAN NOT ON STAFF,NONSTAFF [Primary Care Provider] - Time of Disposition: 21:39
== END 2024-07-24 21:52 | disposition home or self-care (01) ==
PROVIDERS: Emergency Provider Student in an Organized Health Care Education/Training Program
DX: S20.211A Contusion of right front wall of thorax, initial encounter (principal); F31.9 Bipolar disorder, unspecified; G47.30 Sleep apnea, unspecified; E78.5 Hyperlipidemia, unspecified; M48.10 Ankylosing hyperostosis [Forestier], site unspecified; W22.09XA Striking against other stationary object, initial encounter
CPT/HCPCS: 71101; 71250; 96372; 99284; A9270; J1171; J1885

== ENCOUNTER 2025-04-03 09:27 | Emergency (ER) | payer OTHER, SELFPAY ==
--- NOTE | ~2025-04-03 | XR_ITS ---
EXAMINATION: XR toe 5th LT min 2V DATE: 04/03/2025 09:53 INDICATION: Hyperflexion injury with bruising at the middle phalanx of the left fifth toe TECHNIQUE: Dorsal plantar, lateral and 2 oblique views of the left fifth were obtained. COMPARISON: None FINDINGS: Bone alignment is normal. The fifth proximal and middle phalanges are developmentally fused. No fracture. Joint spaces are normal. Soft tissue swelling about the fifth toe and the lateral aspect of the forefoot. IMPRESSION: No acute osseous abnormality. Reviewed, dictated and finalized at location A.
--- OUTSIDE RECORDS SUMMARY | 2025-04-03 09:29 | XMS_ITS | Patient Health Record ---
Author Organization [facility] Address [address] [place] [address] Care Team Providers Care Charhouse Worker Name Role Phone Sheron Collins Primary Care Provider [phone] Reason For Referral No Information Social History Sex Assigned At : Social History Observation Description Sex Assigned At Female PRAPARE Question Answer Notes Date Completed/Updated: 12/15/2024 What is your current housing situation? I have h ousing Are you worried about losing your housing? No What is the highest level of school that you have finished? 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 Check all that apply I do not have problems meeting my needs Has lack of transportation k ept you from medical appointments, meetings, work or from getting things needed for daily living? No How often do you see or talk to people that you care about and feel close to? (For example: talking to friends on the phone, visiting friends or family, going to oriental orthodox or club meetings) 3 to 5 times a week How stressed are you? Stress is when someone feels tense, nervous, anxious, or can\t sleep at night because their mind is troubled Quite a bit In the past year have you sp ent more than 2 nights in a row in a alf, intermediate, senior living center, or juvenile correctional facility? No Do you feel physically and e motionally safe where you currently live? Yes In the past year, have you b een afraid of your partner or ex-partner? No PRAPARE Score: 6 Enabling Services Provided? Yes Please specify Case Management Appointment Made Encounters Encounter Location Date Provider Diagnosis [address] [place] [address] 12/16/2024 Sheron Collins Plan Of Treatment No Information Insurance Providers Payer Name Payer Address Payer Phone Subscriber Number Group Number Insured Name Patient Relationship to Insured Coverage Start Date Coverage End Date [facility] Att Claims Department [address] [place] [address] [id number] Crissy Galeano Self - patient is the insured 5
--- OUTSIDE RECORDS SUMMARY | 2025-04-03 09:29 | XMS_ITS | Clinical Summary ---
Author Organization [facility] Address [address] [place] [address] Phone Care Team Providers Care Card Hanger Name Role Phone Colleen Leggett MD Primary Care Provider Allergies Active Allergy Reactions Criticality Noted Date Comments Aspirin Other (see Comments) 09/28/2016 Ears ringing, headache, nausea Medications LamoTRIgine (LAMICTAL) 150 MG Tablet Take 150 mg by mouth 2 times daily. Active azithromycin (ZITHROMAX Z-ROSE) 250 MG Tablet 2 tab(s) daily for 1 day, then 1 tab(s) daily for days 2-5. 6 Tab 0 03/28/2016 Active predniSONE (DELTASONE) 50 MG Tablet Take 1 Tab by mouth daily. Use as directed. 5 Tab 0 09/28/2016 Active PARoxetine (PAXIL) 10 MG Tablet Take 10 mg by mouth daily. 10/27/2016 Active methylPREDNISol one (MEDROL DOSPACK) 4 MG Tablet Therapy Pack See product package insert for dosing schedule 21 Tab 0 11/09/2016 Active HYDROcodone-chantal taminophen (NORCO) 5-325 MG Tablet Take 1-2 Tabs by mouth every 4 hours as needed for Pain. 20 Tab 0 11/08/2016 Active naproxen (NAPROSYN) 500 MG Tablet Take 500 mg by mouth 2 times daily (with meals). Active sulfaSALAzine (AZULFIDINE) 500 MG Tablet Take 1,000 mg by mouth 2 times daily. Active ARIPiprazole (ABILIFY) 5 MG Tablet Take 5 mg by mouth daily. Active Acetaminophen (TYLENOL PO) Take by mouth. Active tobramycin (TOBREX) 0.3 % Solution Place 1-2 Drops in left eye every 4 hours. 1 Bottle 12/10/2018 Active Social History Tobacco Use Types Packs/Day Years Used Date Smoking Tobacco: Former E-Vapor with Nicotine Smokeless Tobacco: Never Alcohol Use Standard Drinks/Week Comments No 0 (1 standard drink = 0.6 oz pur e alcohol) Comments No Sex and Gender Information Value Date Recorded Sex Assigned at Not on file Legal Sex Female 9:18 PM CDT Gender Identity Not on file Sexual Orientation Not on file Last Filed Vital Signs Vital Sign Reading Time Taken Comments Blood Pressure 132/69 12/10/2018 2:46 AM CDT Pulse 88 12/10/2018 2:46 AM CDT Temperature 36.1 C (97 F) 01/30/2017 2:01 PM CDT Respiratory Rate 18 12/10/2018 2:46 AM CDT Oxygen Saturation 100% 12/10/2018 2:46 AM CDT Inhaled Oxygen Concentration - - Weight 106.6 kg (235 lb) 12/10/2018 2:46 AM CDT Height 175.3 cm (5' 9) 12/10/2018 2:46 AM CDT Body Mass Index 34.7 12/10/2018 2:46 AM CDT Plan of Treatment Health Maintenance Due Date Last Done Comments Hepatitis B Immunization (1 of 3 - 19+ 3-dose series) 11/12/1995 Pap Smear 1997 Cervical Cancer Screening (CCS) 2006 HPV/Cotest 2006 Cologuard 2021 Colonoscopy 2021 Colorectal Cancer Screening 2021 Immunochemical Fecal Occult Blood 2021 SARS-COV-2 Immunization ( season) 2024 05/29/2021, 11/08/2020, 10/11/2020 Influenza Immunization (#1) 2025 Respiratory Syncytial Virus (RSV) Immunization (Adult) (1 - 1-dose 75+ series) 11/12/2051 DTaP/Tdap/Td Immunization Discontinued 04/14/2017 TdaP Immunization Completed 04/14/2017 Hepatitis C Virus (HCV) Screening Completed 09/22/2019 Discussion re Starting/Frequency of Mammograms Discontinued 02/09/2020 Human Papillomavirus (HPV) Immunization Aged Out No longer eligible based on patient's age to complete this topic Meningococcal Immunization (ACWY) Aged Out No longer eligible based on patient's age to complete this topic Pneumococcal Immunization Combined Aged Out No longer eligible based on patient's age to complete this topic Rotavirus Immunization Aged Out No lo nger eligible based on patient's age to complete this topic Procedures Procedure Name Priority Date/Time Associated Diagnosis Comments ASCENCION SCREENING BILATERAL DIGITAL W CAD W MINA Routine 02/09/2020 4:30 PM CDT Encounter for screening mammogram for malignant neoplasm of breast HEPATITIS PANEL ACUTE (AHP) Routine 09/22/2019 4:11 PM ELECTRIC RANGE ASSEMBLER Gastroesophageal reflux disease without esophagitis Leukocytosis, unspecified type from Last 3 Months or Most Recently Relevant to Health Maintenance Results * ASCENCION SCREENING BILATERAL DIGITAL W CAD W MINA (02/09/2020 4:30 PM CDT) Anatomical Region Laterality Modality breast Bilateral Mammography 02/09/2020 3:57 PM CDT Narrative 02/10/2020 4:09 PM CDT - ASCENCION SCREENING BILATERAL DIGITAL W CAD W MINA BILATERAL DIGITAL SCREENING MAMMOGRAM 3D/2D WITH CAD WITH MEDIOLATERAL OBLIQUE CRANIOCAUDAL: 02/09/2020 The study was acquired using digital technology and interpreted from soft copy. Current study was also evaluated with ICAD version 7.2. CLINICAL: Baseline screening. Due to patients hypersthenic body habitus, additional images were taken in an effort to obtain adequate tissue. Patient has no complaints. No personal history of cancer. Maternal grandmother had breast cancer. COMPARISONS: No prior exams were available for comparison. BREAST TISSUE:The tissue of both breasts is predominantly fatty. FINDINGS: No significant masses, calcifications, or other findings are seen in either breast. IMPRESSION: BI-RAD 1 NEGATIVE There is no mammographic evidence of malignancy. A 1 year screening mammogram is recommended. The patient has been or will be contacted. The patient will be entered into a reminder system with a target due date of 1 year for her next screening exam. Electronically signed by: Audra morris/dario:02/10/2020 14:34:24 Machinist Linotype: Tracy ESPINO)([place]), [facility] letter sent: Normal Exam Reading location: [facility] BI-RADS: 1 Negative Procedure Note Audra Guevara MD - 02/10/2020 - ASCENCION SCREENING BILATERAL DIGITAL W CAD W MINA BILATERAL DIGITAL SCREENING MAMMOGRAM 3D/2D WITH CAD WITH MEDIOLATERAL OBLIQUE CRANIOCAUDAL: 02/09/2020 The study was acquired using digital technology and interpreted from soft copy. Current study was also evaluated with ICAD version 7.2. CLINICAL: Baseline screening. Due to patients hypersthenic body habitus, additional images were taken in an effort to obtain adequate tissue. Patient has no complaints. No personal history of cancer. Maternal grandmother had breast cancer. COMPARISONS: No prior exams were available for comparison. BREAST TISSUE:The tissue of both breasts is predominantly fatty. FINDINGS: No significant masses, calcifications, or other findings are seen in either breast. IMPRESSION: BI-RAD 1 NEGATIVE There is no mammographic evidence of malignancy. A 1 year screening mammogram is recommended. The patient has been or will be contacted. The patient will be entered into a reminder system with a target due date of 1 year for her next screening exam. Electronically signed by: Audra morris/dario:02/10/2020 14:34:24 Machinist Linotype: Tracy ESPINO)([place]), [facility] letter sent: Normal Exam Reading location: [facility] BI-RADS: 1 Negative Nicole Oconnell APRN, [facility]IENT [facility] IM MAMMO ORDERABLES Melony l Result * HEPATITIS PANEL ACUTE (AHP) (09/22/2019 4:11 PM ELECTRIC RANGE ASSEMBLER) HEPATITIS A IGM ANTIBODY NON DETECTED NON DETECTED 09/23/2019 3:40 PM ELECTRIC RANGE ASSEMBLER [facility] Comment: IGM Antibodies to HAV not detected. Does not exclude early acute or recovered HAV infection. HEP B CORE AB (IGM) NON DETECTED NON DETECTED 09/23/2019 3:40 PM ELECTRIC RANGE ASSEMBLER [facility] Comment:IGM anti-HBC not det ected. Does not exclude the possibility of exposure to or infection with HBV. HEPATITIS B SURFACE ANTIGEN NON DETECTED NON DETECTED 09/23/2019 3:40 PM ELECTRIC RANGE ASSEMBLER [facility] Comment:A nonreactive test r esult does not exclude the possibility of exposure to or infection with Hepatitis B virus. A nonreactive test result in individuals with prior exposure to hepatitis B may be due to antigen levels below the detection limit of this assay or lack of antigen reactivity to the antibodies in this assay. hepatitis C antibody 0.16 <1 S/CO 09/23/2019 3:40 PM ELECTRIC RANGE ASSEMBLER [facility] Comment: Signal/Cutoff ratio < 0.79 is Nondetected Signal/Cutoff ratio 0.80-0.99 is Grayzone Signal/Cutoff ratio > 0.99 is Detected Supplemental assays are recommended if signal/cutoff ratio is >/=1.00. Signal/cutoff ratio result >/= 5.00 is 97% predictive of positivity for recombinant immunoblot assay (RIBA) and will be reported to the [place] Department of Public Health as required. Blood specimen (specimen) Venipuncture / Unknown 09/22/2019 4:11 PM ELECTRIC RANGE ASSEMBLER 09/22/2019 4:37 PM ELECTRIC RANGE ASSEMBLER us Colleen Armijo MD HEMATOLOGY ORDERABLES Final Result [facility] [address] [place] [address], from Last 3 Months or Most Recently Relevant to Health Maintenance Insurance MEDICAID AETNA [facility] Care Teams Card Hanger Relationship Specialty Start Date End Date Colleen Leggett MD [address] [facility] [address] [place] [address] PCP - General Family Medicine 09/22/19
--- OUTSIDE RECORDS SUMMARY | 2025-04-03 09:29 | XMS_ITS | Clinical Summary ---
Author Organization [facility] Facility Address [address] [place] [address] Care Team Providers Care Lead Technologist In Cytogenetics Name Role Phone Unavailable Primary Care Provider Unavailabl e Social History Tobacco Use Types Packs/Day Years Used Date Smoking Tobacco: Never Assessed Comments Unknown Sex and Gender Information Value Date Recorded Sex Assigned at Not on file Legal Sex Female 2:52 PM EDT Gender Identity Not on file Sexual Orientation Not on file Last Filed Vital Signs Vital Sign Reading Time Taken Comments Blood Pressure 142/80 11/13/2020 12:00 PM CDT Pulse 76 11/13/2020 12:00 PM CDT Temperature 36 C (96.8 F) 11/13/2020 12:00 PM CDT Respiratory Rate 20 11/13/2020 12:00 PM CDT Oxygen Saturation 98% 11/13/2020 12:00 PM CDT Inhaled Oxygen Concentration - - Weight 143 kg (315 lb) 11/13/2020 12:00 PM CDT Height 172.7 cm (5' 8) 11/13/2020 12:00 PM CDT Body Mass Index 47.9 11/13/2020 12:00 PM CDT Plan of Treatment Health Maintenance Due Date Last Done Comments Hepatitis B Vaccine (1 of 3 - 19+ 3-dose series) 11/11 Pneumococcal Vaccine: Peds ( 0 to 5 Years) and At-Risk Patients (6 to 49 Years) (1 of 2 - PCV) 11/12/1995 Influenza Vaccine (#1) 2025 06/11/2010 Insurance [facility] (PIL)
--- OUTSIDE RECORDS SUMMARY | 2025-04-03 09:29 | XMS_ITS | Encounter Summary ---
Author Organization [facility] Address [address] [place] [address] Care Team Providers Care Photographer Scientific Name Role Phone Alysha Thompson DO Unavailable [phone] Royce Pineda MD Unavailable Eze Ovalle MD Primary Care Provider [phone] Alysha Thompson DO Unavailable [phone] Royce Pineda MD Unavailable [phone] Reason for Visit * Reason Onset Date Comments MEDICATION REFILL 09/07/2023 Encounter Details Date Type Department Care Team (Late st Contact Info) Description 09/07/2023 Refill [facility]NAL/ EVALUATION UNIT [address] [facility] [place] [address] Maykel Escobar MD [address] [place] [phone] MEDICATION REFILL Social History Tobacco Use Types Packs/Day Years Used Date Smoking Tobacco: Former Cigarettes 0 08/03/1988 - 08/25/2016 Smokeless Tobacco: Never Alcohol Use Standard Drinks/Week Comments Not Currently 0 (1 standard drink = 0.6 oz pur e alcohol) PHQ-2 Answer Date Recorded Patient Health Questionnaire-2 Score 4 07/23/2023 Comments No Sex and Gender Information Value Date Recorded Sex Assigned at Female 03/28/2024 12:07 PM CDT Legal Sex Female 5:20 PM WELDING INSPECTOR Gender Identity Female 03/28/2024 12:07 PM CDT Sexual Orientation Not on file documented as of this encounter Plan of Treatment Upcoming Encounters Date Type Department Care Team (Late st Contact Info) Description 04/05/2025 10:30 AM CDT Office Visit [facility] - Pain Management [address] [place] [phone] Chaz Silverio MD [address] [place] [phone] 04/20/2025 2:40 PM CDT Office Visit [facility] - Rheumatology [address] [place] [phone] Royce Pineda MD [address] [place] [address] [address] [place] [address] 04/21/2025 10:30 AM CDT Office Visit [facility] - Neurology [address] [place] [address], [place] [phone] Elle Davey, HEEL SEAT FITTER MACHINE-RISK ADVISOR [address] [place] [address] [address] [place] [phone] 06/23/2025 1:40 PM WELDING INSPECTOR Office Visit [facility] - Family Medicine [address] [phone] Eze Ovalle MD [address] [phone] documented as of this encounter Visit Diagnoses Not on filedocumented in this encounter Care Teams Photographer Scientific Relationship Specialty Start Date End Date Alysha Thompson DO [address] [place] [address] [address] [place] [address] PCP - Attributed-[place] Medicaid SOIL 02/03/22 05/20/24 Eze Ovalle MD [address] [facility] [address] [place] [address] PCP - General Family Medicine 03/23/23 Alysha Thompson DO [address] [place] [address] PCP - Attributed-[place] Medicaid SOIL 06/03/24 Royce Pineda MD [address] [place] [phone] Cold Press Loader Rheumatology 01/27/23 Royce Pineda MD [address] [place] [phone] Cold Press Loader Rheumatology 03/03/25 documented as of this encounter
--- OUTSIDE RECORDS SUMMARY | 2025-04-03 09:29 | XMS_ITS | Clinical Summary ---
Author Organization [facility] [place] Address [address] [facility] [place] [address] Care Team Providers Care Press Operator Apprentice Name Role Phone Royce Pineda MD Unavailable [phone] Eze Ovalle MD Primary Care Provider [phone] Alysha Thompson DO Unavailable [phone] Royce Pineda MD Unavailable [phone] Source Comments [facility],non-owned Affiliates and Associated Physician Practices is amultiple site organization consisting of ambulatory clinics and hospital sitesin [place], [place], [place] and [place]. This disclosure is being madepursuant to the Care Everywhere program and may not contain all information available regarding this patient. Last updated 18.[facility] Allergies Active Allergy Reactions Criticality Noted Date Comments Aspirin Rash Medium 11/26/2016 Ears ringing, headache, nausea Hydrocodone Psychiatric Medium 09/16/2023 Molds & Smuts Eye Discomfort 07/23/2023 Medications * This document contains information received from the source organization and may not represent a complete record from that organization. * Be aware that medications may not be up to date on this document. Alwaysverify current medications with the patient. lamoTRIgine (LaMICtal) 100 MG tablet Take 1 (one) tablet by mouth once daily 024 Active budesonide-form oterol (Symbicort) 80-4.5 MCG/ACT inhalerIndicati ons:Uncomplicat ed asthma, unspecified asthma severity, unspecified whether persistent (HCC) Inhale 1 (one) puff to 2 (two) puffs by mouth as needed (per action plan if in yellow or red zone and before exertion) Up to total of 8 puffs per day. 10.2 g 024 Active rosuvastatin (Crestor) 5 MG tablet TAKE 1 TABLET BY MOUTH EVERY DAY 90 tablet 3 024 Active traZODone (Desyrel) 50 MG tablet Take 1 (one) tablet by mouth nightly as needed for Insomnia 024 Active LORazepam (Ativan) 0.5 MG tablet 025 Active ammonium lactate (Lac-Hydrin) 12 % creamIndication s:Keratosis pilaris APPLY TO THE AFFECTED AREA EVERY DAY 140 g 025 Active estradiol (Vivelle-Dot) 0.025 MG/24HR patchIndication s:Vasomotor symptoms due to menopause Apply 1 (one) patch to skin Two times a week 24 patch 4 025 Active rizatriptan (Maxalt) 10 MG tablet TAKE 1 TABLET BY MOUTH DAILY NEEDED FOR MIGRAINE. DECEMBER REPEAT 1 TIME 9 tablet 1 025 Active oral balance dry mouth (Biotene) GELIndications: Polydipsia Apply to affected area 4 times daily 42 g 2 025 Active phenazopyridine (Pyridium) 100 MG tablet Take 2 (two) tablets by mouth 3 times daily as needed for Pain 30 tablet 1 025 Active tiZANidine (Zanaflex) 4 MG tablet Take 1 (one) tablet by mouth once 025 Active traMADol (Ultram) 50 MG tabletIndicatio ns:Left hip pain,Contusion of rib, unspecified laterality, initial encounter Take 0.5 (one-half) tablet by mouth every 6 hours as needed for Pain 30 tablet 025 Active omeprazole (PriLOSEC) 40 MG capsuleIndicati ons:Gastroesoph ageal reflux disease without esophagitis TAKE 1 CAPSULE BY MOUTH EVERY DAY 90 capsule 3 025 Active mirabegron ER 24hr (Myrbetriq) 50 MG tablet Take 1 (one) tablet by mouth once daily 60 tablet 2 025 Active solifenacin (VESIcare) 10 MG tablet Take 1 (one) tablet by mouth once daily 30 tablet 4 025 Active erenumab-aooe (Aimovig) 70 MG/ML auto injector penIndications: Migraine with aura and without status migrainosus, not intractable,Ves tibular migraine Inject 1 mL subcutaneously every 30 days 1 mL 5 025 Active fluticasone propionate (Flonase) 50 MCG/ACT nasal sprayIndication s:Seasonal allergic rhinitis, unspecified trigger SHAKE LIQUID AND USE 2 SPRAYS IN EACH NOSTRIL DAILY 16 g 025 Active propranolol ER 24hr (Inderal LA) 60 MG capsuleIndicati ons:Primary hypertension TAKE 1 CAPSULE BY MOUTH DAILY 30 capsule 025 Active etanercept (Enbrel SureClick) 50 MG/ML auto-injector penIndications: Ankylosing spondylitis of sacral region (HCC),Sacroilii tis, not elsewhere classified INJECT 1 PEN SUBCUTANEOUSLY ONCE A WEEK 4 mL 025 Active celecoxib (CeleBREX) 100 MG capsule TAKE 2 CAPSULES BY MOUTH EVERY MORNING AND TAKE 1 CAPSULE EVERY EVENING 270 capsule 1 025 Active dicyclomine (Bentyl) 20 MG tabletIndicatio ns:Irritable bowel syndrome with both constipation and diarrhea TAKE 1 TABLET BY MOUTH FOUR TIMES DAILY NEEDED 120 tablet 025 Active mupirocin (Bactroban) 2 % ointment Apply to affected area 2 times daily 025 Active venlafaxine XR 24hr (Effexor XR) 75 MG capsule Take 1 (one) capsule by mouth daily with breakfast Active cariprazine (Vraylar) 1.5 MG capsule Take 1 (one) capsule by mouth once daily Active FLUoxetine (PROzac) 40 MG capsule Take 2 (two) capsules by mouth once daily 024 2024 Discontinued(L ist Clean-Up) celecoxib (CeleBREX) 100 MG capsule TAKE 2 CAPSULES BY MOUTH EVERY MORNING AND TAKE 1 CAPSULE BY MOUTH EVERY EVENING 270 capsule 1 025 2024 Discontinued dicyclomine (Bentyl) 20 MG tabletIndicatio ns:Irritable bowel syndrome with both constipation and diarrhea TAKE 1 TABLET BY MOUTH FOUR TIMES DAILY NEEDED 120 tablet 025 2024 Discontinued propranolol ER 24hr (Inderal LA) 60 MG capsuleIndicati ons:Primary hypertension TAKE 1 CAPSULE BY MOUTH DAILY 30 capsule 025 2024 Discontinued etanercept (Enbrel SureClick) 50 MG/ML auto-injector penIndications: Ankylosing spondylitis of sacral region (HCC),Sacroilii tis, not elsewhere classified INJECT 1 PEN SUBCUTANEOUSLY ONCE A WEEK 4 mL 025 2024 Discontinued(R eorder) Active Problems Problem Noted Date Diagnosed Date Mixed stress and urge urinary incontinence 02/19 Ankylosing spondylitis 04/24/2022 Postmenopausal bleeding 04/20/2020 Overview (09/23/2021): - Patient underwent menopause at age 41, now with bleeding which started in January 2020 - TVUS at OSH noted Endometrial thickness of 10mm and EMB insufficient for evaluation of endometrial histopathology - Took Provera x2 months in January-Mar 2020 with heavy withdraw bleed passing multiple clots - Referred to [facility] from primary OBGYN for further evaluation - EMB from 04/20/20 with no hyperplasia or malignancy and weakly proliferative endometrium - TVUS 05/30/20 with endometrial thickness 6.8mm Plan: - Given age, will check FSH and estradiol to confirm post-menopausal status - Discussed that if labs confirm post-menopausal can continue expectant management - If pre or murphy-menopausal could consider progestins for endometrial protection, patient strongly desires to avoid IUD placement but ok with DMPA or PO progestins Laryngopharyngeal reflux (LPR) 03/04/2018 Overview (09/23/2021): Last Assessment & Plan: Continue omeprazole in the AM 30 minutes before a meal, start Zantac 300 mg at bedtime. LPR discussed and Handout provided Sacroiliitis, not elsewhere classified 7 Bilateral sacroiliitis 08/14/2016 Migraine 04/05/2009 04/10/2023 Bipolar disorder 04/05/2009 04/10/2023 Assessment & Plan (10/24/2024 7:36 PM CDT): Pt Patient instructed to continue to follow with psych for depressive symptoms and to call the office, psych or seek emergency care if depression worsens or if patient develops thoughts of suicide. Encounters * This document contains information received from the source organization and may not represent a complete record from that organization. 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; Fatigue, unspecified type; History of iron deficiency; Vitamin D deficiency 03/24/2025 Travel 03/24/2025 Refill [facility] - Rheumatology [address] [place] [phone] Royce Pineda MD Refill Request 03/19/2025 Refill [facility] Family Medicine [address] [place] [phone] Eze Ovalle MD Refill Request 03/19/2025 Refill [facility] - Orthopedics [address] [place] [phone] Royce Pineda MD Refill Request 03/10/2025 Refill [facility] - Rheumatology [address] [place] [phone] Royce Pineda MD MEDICATION REFILL 03/05/2025 Refill [facility] Family Medicine [facility] [place] [phone] Eze Ovalle MD Refill Request 03/03/2025 Refill [facility] - Rheumatology [address] [place] [address], [place] [address] Royce Pineda MD MEDICATION REFILL 02/12/2025 Refill [facility] - Family Medicine [address] [facility] [address] [place] [address] Eze Ovalle MD Refill Request 02/08/2025 Travel 02/06/2025 Orders Only [facility] - Neurology [address] [place] [address], [place] [phone] Elle Davey, AUTO ROLLER-SENIOR DIRECTOR CREATIVE SERVICES Migraine with aura and without status migrainosus, not intractable; Vestibular migraine 02/06/2025 Refill [facility] - Rheumatology [address] [place] [address], [place] [phone] Royce Pineda MD MEDICATION REFILL 02/02/2025 Refill [facility] - Rheumatology [address] [place] [address], [place] [address] Royce Pineda MD MEDICATION REFILL 01/31/2025 Refill [facility] - Family Medicine [address] [place] [phone] Eze Ovalle MD Refill Request 01/31/2025 Refill [facility] - Neurology [address] [place] [phone] Elle Davey, AUTO ROLLER-SENIOR DIRECTOR CREATIVE SERVICES MEDICATION REFILL 01/17/2025 Travel 01/17/2025 Telephone [facility] - Centralized Scheduling [address] [place] [phone] Leslie Garrido MD Reschedule Appointment 01/17/2025 Orders Only [facility] PHYS OB [address] [place] [address] Maykel Lux MD 01/16/2025 Refill [facility]ERNAL/ EVALUATION UNIT [address] [place], [place] [address]e. [address] [place] [address] Osmar Keen MD Refill Request 01/13/2025 Refill [facility] - Family Medicine [address] [facility] [place] [address] [place] [address] Eze Ovalle MD Refill Request 01/11/2025 Refill [facility] - Rheumatology [address] [facility], [place] [phone] Royce Pineda MD Refill Request 01/09/2025 Orders Only [facility]ERNAL/ EVALUATION UNIT [address] [place] [address] Jean Pierre Corona MD 01/04/2025 Refill [facility] - Family Medicine [address] [place] [phone] Eze Ovalle MD Refill Request from Last 3 Months Immunizations Immunization Administration Dates Next Due Covid [email or web address] primary monoval ent 12+ yr 0.3mL Purple cap 04/20/2022 FLU, HISTORIC VACCINE 06/11/2010 INFLUENZA VACCINE 05/06/2023,04/20/2022,06/11/20 10 TDAP (7yrs+) 04/14/2017,04/09/2010 Family History Medical History Relation Name Comments Cancer - Breast Maternal Grandmother Arthritis - Osteo Mother Relation Name Status Comments Maternal Grandmother Mother Social History Tobacco Use Types Packs/Day Years Used Date Smoking Tobacco: Former Cigarettes 0 08/03/1988 - 08/25/2016 Smokeless Tobacco: Never Tobacco Cessation:Counseling Given: Not Answered Alcohol Use Standard Drinks/Week Comments Not Currently 0 (1 standard drink = 0.6 oz pur e alcohol) PHQ-2 Answer Date Recorded Patient Health Questionnaire-2 Score 0 03/24/2025 Comments No Sex and Gender Information Value Date Recorded Sex Assigned at Female 03/28/2024 12:07 PM CDT Legal Sex Female 5:20 PM CORN POPPER Gender Identity Female 03/28/2024 12:07 PM CDT Sexual Orientation Not on file Last Filed Vital Signs Vital Sign Reading Time Taken Comments Blood Pressure 131/85 03/24/2025 1:09 PM CDT Pulse 75 03/24/2025 1:09 PM CDT Temperature 36.8 C (98.3 F) 12/16/2024 1:04 PM CDT Respiratory Rate 20 12/16/2024 1:04 PM CDT Oxygen Saturation 100% 03/24/2025 1:09 PM CDT Inhaled Oxygen Concentration - - Weight 140.6 kg (310 lb) 03/24/2025 1:09 PM CDT Height 175.3 cm (5' 9) 03/24/2025 1:09 PM CDT Body Mass Index 45.78 03/24/2025 1:09 PM CDT Plan of Treatment Upcoming Encounters Date Type Department Care Team (Late st Contact Info) Description 04/05/2025 10:30 AM CDT Office Visit [facility] - Pain Management [address] [place] [phone] Chaz Silverio MD [address] [place] [phone] 04/20/2025 2:40 PM CDT Office Visit [facility] - Rheumatology [address] [place] [address], [place] [phone] Royce Pineda MD [address] [place] [address] [address] [place] [phone] 04/21/2025 10:30 AM CDT Office Visit [facility] - Neurology [address] [place] [address], [place] [phone] Elle Davey, AUTO ROLLER-SENIOR DIRECTOR CREATIVE SERVICES [address] [place] [address] [address] [place] [phone] 06/23/2025 1:40 PM CORN POPPER Office Visit [facility] - Family Medicine [facility] [facility] [address] [place] [phone] Eze Ovalle MD [address] [facility] [address] [place] [address] Health Maintenance Due Date Last Done Comments CT COLONOGRAPHY - COLON CA SCREENING 1975 FIT - COLON CA SCREENING 1975 FLEX SIG - COLON CA SCREENING 1975 HEPATITIS B VACCINE (1 of 3 - 19+ 3-dose series) 11/12/1995 PNEUMOCOCCAL VACCINE (1 of 2 - PCV) 11/12/1995 ZOSTER VACCINE (1 of 2) 11/12/1995 MAMMOGRAM 02/08/2022 02/09/2020, 02/09/2020 COVID-19 VACCINE ( season) 2024 04/20/2022, 11/08/2020, 10/11/2020 INFLUENZA VACCINE (#1) 2025 3, 04/20/2022, 06/11/2010, Additional history exists COLOGUARD (AGES 45-75) - COLON CA SCREENING 06/18/2025 06/18/2022, 06/18/2022 DTAP/TDAP/TD VACCINES (3 - Td or Tdap) 04/14/2027 04/14/2017, 04/09/2010 SCREENING FOR DIABETES 03/24/2028 5, 12/16/2024, 04/19/2024, Additional history exists COLONOSCOPY - COLON CA SCREENING 03/28/2029 03/28/2024, 03/28/2024, 03/28/2024 Colorectal Cancer Screening 03/28/2029 COLON MONITORING 03/28/2034 03/28/2024, , 03/28/2024 HEPATITIS C SCREENING Completed 05/23/2020 , 09/22/2019, 07/23/2016 HIB VACCINE Aged Out No longer eligi ble based on patient's age to complete this topic HIV SCREENING Discontinued HPV VACCINE Aged Out No longer eligi ble based on patient's age to complete this topic MENINGOCOCCAL (Group B) VACCINE SHARED DECISION-MAKING Aged Out No longer eligible based on patient's age to complete this topic MENINGOCOCCAL GROUPS A/C/Y/W VACCINE Aged Out No longer eligible based on patient's age to complete this topic Procedures Procedure Name Priority Date/Time Associated Diagnosis Comments HEMOGLOBIN A1C - POINT OF CARE (AMB) [facility] Routine 03/24/2025 1:17 PM CDT Prediabetes ENDOSCOPY, COLON, SCREENING Routine 03/28/2024 1:21 PM CDT Colon cancer screening COLOGUARD TEST Routine 06/18/2022 1:00 PM CORN POPPER Colon cancer screening HEPATITIS C AB SCREEN RFLX NAAT QUANT Routine 05/23/2020 5:19 PM CDT Sacroiliitis, not elsewhere classified from Last 3 Months or Most Recently Relevant to Health Maintenance Results * HEMOGLOBIN A1C - POINT OF CARE (AMB) [facility] (03/24/2025 1:17 PM CDT) Hemoglobin A1c POCT 5.6 % NATHALY [address] [facility] BLOOD SPECIMEN / Unknown 03/24/2025 1:17 PM CDT Eze Ovalle MD LAB - POINT OF CARE ORDERABLES F inal Result [facility] [address] [facility] [address] [facility] [address] [place] [address], [facility] [phone] * Endoscopy, Colon, Screening (03/28/2024 1:21 PM CDT) Report Endoscopy POC _ Patient Name: Crissy Glasgow Procedure Date: 03/28/2024 1:21 PM Date of : 1975 Admit Type: Outpatient Age: 48 Gender: Female Ethnicity: Not or Race: White Attending MD: Isabela Fonseca MD, [id number] _ Procedure: Colonoscopy Indications: Screening for colorectal malignant neoplasm Providers: Isabela Fonseca MD (Doctor), Crissy Molina RN, Amina Miner, Board Design Engineer Patient Profile: 48F presents for avg risk screening colonoscopy. no prior exams Referring MD: Eze Ovalle (Referring MD) Medicines: Monitored Anesthesia Care Complications: No immediate complications. _ Estimated Blood Loss: Estimated blood loss was minimal. Procedure: Pre-Anesthesia Assessment: - Prior to the procedure, a History and Physical was performed, and patient medications and allergies were reviewed. The patient's tolerance of previous anesthesia was also reviewed. The risks and benefits of the procedure and the sedation options and risks were discussed with the patient. All questions were answered, and informed consent was obtained. Prior Anticoagulants: The patient has taken no anticoagulant or antiplatelet agents. ASA Grade Assessment: II - A patient with mild systemic disease. After reviewing the risks and benefits, the patient was deemed in satisfactory condition to undergo the procedure. After I obtained informed consent, the scope was passed under direct vision. Throughout the procedure, the patient's blood pressure, pulse, and oxygen saturations were monitored continuously. The Colonoscope was introduced through the anus and advanced to the cecum, identified by appendiceal orifice and ileocecal valve. The colonoscopy was performed without difficulty. The patient tolerated the procedure well. The quality of the bowel preparation was fair. The ileocecal valve, appendiceal orifice, and rectum were photographed. Impression: - Preparation of the colon was fair. - One 8 mm polyp in the transverse colon, removed with a cold snare. Resected and retrieved. - One 5 mm polyp in the descending colon, removed with a cold biopsy forceps. Resected and retrieved. - The examination was otherwise normal. Findings: The perianal and digital rectal examinations were normal. An 8 mm polyp was found in the transverse colon. The polyp was sessile. The polyp was removed with a cold snare. Resection and retrieval were complete. A 5 mm polyp was found in the descending colon. The polyp was sessile. The polyp was removed with a cold biopsy forceps. Resection and retrieval were complete. The exam was otherwise without abnormality. _ Recommendation: - Patient has a contact number available for emergencies. The signs and symptoms of potential delayed complications were discussed with the patient. Return to normal activities tomorrow. Written discharge instructions were provided to the patient. - High fiber diet. - Repeat colonoscopy in 5 years for surveillance based on pathology results. Procedure Code(s): --- Professional --- 88968, Colonoscopy, flexible; with removal of tumor(s), polyp(s), or other lesion(s) by snare technique 30748, 59, Colonoscopy, flexible; with biopsy, single or multiple --- Technical --- 23086, Colonoscopy, flexible; with removal of tumor(s), polyp(s), or other lesion(s) by snare technique 49713, 59, Colonoscopy, flexible; with biopsy, single or multiple Diagnosis Code(s): --- Professional --- Z12.11, Encounter for screening for malignant neoplasm of colon D12.3, Benign neoplasm of transverse colon (hepatic flexure or splenic flexure) D12.4, Benign neoplasm of descending colon --- Technical --- Z12.11, Encounter for screening for malignant neoplasm of colon D12.3, Benign neoplasm of transverse colon (hepatic flexure or splenic flexure) D12.4, Benign neoplasm of descending colon CPT copyright 2020 [place] [employer]. All rights reserved. The codes documented in this report are preliminary and upon remote medical coder review may be revised to meet current compliance requirements. Isabela Fonseca MD 03/28/2024 2:50:27 PM This report has been signed electronically. Number of Addenda: 0 Note Initiated On: 03/28/2024 1:21 PM [facility] ENDOSCOPY 03/28/2024 1:21 PM CDT Narrative Procedure Note Isabela Fonseca MD - 03/28/2024 2:51 PM CDT Colonoscopy 2 small polyps resected Rpt 5 yrs pending path D/w crissy us Isabela Fonseca MD GI PROCEDURE ORDERABLES Edited R esult - Final [facility] ENDOSCOPY * Cologuard ($$$) (06/18/2022 1:00 PM CORN POPPER) Cologuard Negative Negative [facility] Comment: NEGATIVE TEST RESULT. A negative Cologuard result indicates a low likelihood that a colorectal cancer (CRC) or advanced adenoma (adenomatous polyps with more advanced pre-malignant features) is present. The chance that a person with a negative Cologuard test has a colorectal cancer is less than 1 in 1500 (negative predictive value >99.9%) or has an advanced adenoma is less than 5.3% (negative predictive value 94.7%). These data are based on a prospective cross-sectional study of 10,000 individuals at average risk for colorectal cancer who were screened with both Cologuard and colonoscopy. (Arianna Victoria al, N Engl J Med 2014;370(14):1444-9245) The normal value (reference range) for this assay is negative. COLOGUARD RE-SCREENING RECOMMENDATION: Periodic colorectal cancer screening is an important part of preventive healthcare for asymptomatic individuals at average risk for colorectal cancer. Following a negative Cologuard result, the [place] [employer] and U.S. Multi-Society Task Force screening guidelines recommend a Cologuard re-screening interval of 3 years. References: [place] [employer] Guideline for Colorectal Cancer Screening: https://www.cancer.org/cancer/lsjxd-lpiuzk-ojdoci/gdvhbzich-hbnbxlebk-jnrxxtg/ acs-recommendations.html.; Deandre DK, Adore CR, Twyla PantojaK, Colorectal Cancer Screening: Recommendations for Physicians and Patients from the U.S. Multi-Society Task Force on Colorectal Cancer Screening , Am J Gastroenterology 2017; 112:8517-5043. TEST DESCRIPTION: Composite algorithmic analysis of stool DNA-biomarkers with hemoglobin immunoassay. Quantitative values of individual biomarkers are not reportable and are not associated with individual biomarker result reference ranges. Cologuard is intended for colorectal cancer screening of adults of either sex, 45 years or older, who are at average-risk for colorectal cancer (CRC). Cologuard has been approved for use by the U.S. FDA. The performance of Cologuard was established in a cross sectional study of average-risk adults aged 50-84. Cologuard performance in patients ages 45 to 49 years was estimated by sub-group analysis of near-age groups. Colonoscopies performed for a positive result may find as the most clinically significant lesion: colorectal cancer [4.0%], advanced adenoma (including sessile serrated polyps greater than or equal to 1cm diameter) [20%] or non- advanced adenoma [31%]; or no colorectal neoplasia [45%]. These estimates are derived from a prospective cross-sectional screening study of 10,000 individuals at average risk for colorectal cancer who were screened with both Cologuard and colonoscopy. (Arianna Jones et al, N Engl J Med 2014;370(14):6506-9766.) Cologuard may produce a false negative or false positive result (no colorectal cancer or precancerous polyp present at colonoscopy follow up). A negative Cologuard test result does not guarantee the absence of CRC or advanced adenoma (pre-cancer). The current Cologuard screening interval is every 3 years. ([place] [employer] and U.S. Multi-Society Task Force). Cologuard performance data in a 10,000 patient pivotal study using colonoscopy as the reference method can be accessed at the following location: www.[email or web address].Carvoyant/results. Additional description of the Cologuard test process, warnings and precautions can be found at www.[employer].com. Stool STOOL SPECIMEN / Unknown 06/18/2022 1:00 PM CORN POPPER 06/19/2022 11:23 AM CORN POPPER us Giovanni Paniagua MD LAB - CHEMISTRY ORDERABLES Final Result Performing Organization Address City/[facility]/ZIP Co de Phone Number [facility] [address] [place] [id number] [facility] [address] [place] [id number] * HEPATITIS C AB SCREEN RFLX NAAT QUANT (05/23/2020 5:19 PM CDT) Hepatitis C Antibody Non-react laila Non-reac tive 05/23/2020 6:16 PM CDT [facility] Comment:Hepatitis C Antibody screen indicates no serologic evidence of past or current infection with Hepatitis C Virus. Patients with unexplained liver disease who are immunocompromised or suspected of having acute Hepatitis C infection may benefit from Nucleic Acid Test (ANN) for Hepatitis C Viral RNA to confirm Hepatitis C status. Blood BLOOD SPECIMEN / Unknown Lab Venipuncture / Unknown 05/23/2020 5:19 PM CDT 05/23/2020 5:32 PM CDT Royce Pineda MD LAB - CHEMISTRY ORDERABLES Fi nal Result Performing Organization Address City/[facility]/ZIP Co de Phone Number [facility] [address] [place] [address], [facility] [phone] from Last 3 Months or Most Recently Relevant to Health Maintenance Insurance [facility] * Guarantor: CRISSY MARISCAL Account Type Relation to Patient Date of Phone Billing Address Personal/Family Spouse Care Teams Press Operator Apprentice Relationship Specialty Start Date End Date Eze Ovalle MD [address] [facility] [address] [place] [address] PCP - General Family Medicine 03/23/23 Alysha Thompson DO [address] 2L DIV [place] [phone] PCP - Attributed-[place] 06/03/24 Royce Pineda MD [address] 2L [place] [phone] Anthropometrist Rheumatology 01/27/23 Royce Pineda MD [address] 2[address] [place] [phone] Anthropometrist Rheumatology 03/03/25
--- OUTSIDE RECORDS SUMMARY | 2025-04-03 09:29 | XMS_ITS | Encounter Summary ---
Author Organization [facility] Address [address] [facility] [place] [address] Care Team Providers Care Environmental Quality Analyst Name Role Phone Giovanni Paniagua MD Primary Care Provider [phone] Alysha Thompson DO Unavailable Royce Pineda MD Unavailable [phone] Eez Ovalle MD Primary Care Provider [phone] Alysha Thompson DO Unavailable [phone] Royce Pineda MD Unavailable [phone] Reason for Visit * Reason Onset Date Comments MEDICATION REFILL 04/02/2022 Encounter Details Date Type Department Care Team (Late st Contact Info) Description 04/02/2022 Refill [facility] MATERNAL/ EVALUATION UNIT [address] [facility] [address] [place] [address] Skye Oneill MD [address] [place] [address] MEDICATION REFILL Social History Tobacco Use Types Packs/Day Years Used Date Smoking Tobacco: Former Cigarettes 0 08/03/1988 - 08/25/2016 Smokeless Tobacco: Never Alcohol Use Standard Drinks/Week Comments Not Currently 0 (1 standard drink = 0.6 oz pur e alcohol) PHQ-2 Answer Date Recorded PHQ2 TOTAL SCORE 0 11/18/2021 Comments No Sex and Gender Information Value Date Recorded Sex Assigned at Female 03/28/2024 12:07 PM CDT Legal Sex Female 5:20 PM MALE IMPERSONATOR Gender Identity Female 03/28/2024 12:07 PM CDT Sexual Orientation Not on file documented as of this encounter Plan of Treatment Upcoming Encounters Date Type Department Care Team (Late st Contact Info) Description 04/05/2025 10:30 AM CDT Office Visit [facility] - Pain Management [address] [place] [phone] Chaz Silverio MD [address] [place] [phone] 04/20/2025 2:40 PM CDT Office Visit [facility] - Rheumatology [address] [place] [address] [place] [address] Royce Pineda MD [address] [place] [address] 2L [place] [address] 04/21/2025 10:30 AM CDT Office Visit [facility] - Neurology [address] [place] [address], [place] [address] Elle Davey, BUSINESS MAIL ENTRY CLERK-SAP ADMINISTRATOR [address] [place] [address] 1L [place] [phone] 06/23/2025 1:40 PM MALE IMPERSONATOR Office Visit [facility] - Family Medicine [address] [place] [phone] Eze Ovalle MD [facility] [address] [address] documented as of this encounter Visit Diagnoses Not on filedocumented in this encounter Care Teams Environmental Quality Analyst Relationship Specialty Start Date End Date Giovanni Paniagua MD [address] [place] [address] 2L [place] [address] PCP - General 03/14/21 03/22/23 Alysha Thompson DO [address] 2[address] DIV [place] [phone] PCP - Attributed-[place] 02/03/22 05/20/24 Eze Ovalle MD [address] [place] [address] [place] [address] PCP - General Family Medicine 03/23/23 Alysha Thompson DO [address] 2[address] DIV [place] [address] PCP - Attributed-[place] 06/03/24 Royce Pineda MD [address] [place] [address] Welder Apprentice Arc Rheumatology 01/27/23 Royce Pineda MD [address] [place] [address] Welder Apprentice Arc Rheumatology 03/03/25 documented as of this encounter
--- OUTSIDE RECORDS SUMMARY | 2025-04-03 09:29 | XMS_ITS | Clinical Summary ---
Author Organization [facility] Address [address] [place] [address] Care Team Providers Care Rotoformer Backtender Name Role Phone CristianoBariDengevan Grace THUMB SEWER Primary Care Provider + Nicole Oconnell NP Unavailable [phone] Eze Ovalle MD Unavailable [phone] Allergies Active Allergy Reactions Criticality Noted Date Comments Aspirin Other (See comments) Low 09/28/2016 Ears ringing, headache, nausea Medications naproxen (NAPROSYN,ALEV E) 500 mg tablet take 1 tablet by oral route 2 times every day with food 0 0 06/11/20 16 Active omeprazole (PriLOSEC) 20 mg capsule 11/07/19 17 Active beclomethasone (QVAR) 40 mcg/actuation inhaler INL 2 PFS PO BID 08/26/19 18 Active EnbreL SureClick 50 mg/mL (1 mL) pen injector INJECT 1 PEN SUBCUTANEOUSLY ONCE A WEEK 11/24/19 25 Active mupirocin (BACTROBAN) 2 % ointment Apply topically 2 (two) times a day 22 g 03/11/20 25 Active doxycycline (VIBRAMYCIN) 100 mg capsule Take 1 tablet/capsule (100 mg total) by mouth 2 (two) times a day for 7 days 14 tablet/capsu le 03/11/20 25 025 Active Problems Problem Noted Date Diagnosed Date Postmenopausal bleeding 04/20/2020 Overview (05/30/2020): - Patient underwent menopause at age 41, now with bleeding which started in January 2020 - TVUS at OSH noted Endometrial thickness of 10mm and EMB insufficient for evaluation of endometrial histopathology - Took Provera x2 months in January-Mar 2020 with heavy withdraw bleed passing multiple clots - Referred to [facility] from primary OBGYN for further evaluation - [...] or PO progestins Laryngopharyngeal reflux (LPR) 03/04/2018 Assessment & Plan (03/04/2018 3:37 PM CDT): Continue omeprazole in the AM 30 minutes before a meal, start Zantac 300 mg at bedtime. LPR discussed and Handout provided Encounters Date Type Department Care Team Description 03/12/2025 Results Follow-Up [facility] [place] [address] [phone] Savanna Fisher NP Aerobic and anaerobic culture and gram stain Wound Leg, right 03/11/2025 10:16 PM CDT - 03/11/2025 11:59 PM CDT Hospital Encounter [place] [id number] Wound infection Discharge Disposition: Discharge to home or self care 03/11/2025 5:30 PM CDT Office Visit [facility] [place] [address] [address] [phone] Savanna Fisher NP Wound infection (Primary Dx) from Last 3 Months Medical History Medical History Date Comments Hx Other Medical Unspecified Aut oimmune Inflammatory Disorder; Comments: FARHAD 06/11/2016 - Hx Other Medical cesarian; Comme nts: FARHAD 06/11/2016 - Social History Tobacco Use Types Packs/Day Years Used Date Smoking Tobacco: Former Smokeless Tobacco: Current Alcohol Use Standard Drinks/Week Comments Not Currently 0 (1 standard drink = 0.6 oz pur e alcohol) maybe social on occasion Comments No Sex and Gender Information Value Date Recorded Sex Assigned at Not on file Legal Sex Female 10:59 AM DIRECTOR OF ENGINEERING Gender Identity Not on file Sexual Orientation Not on file Obstetrics History Para Term AB IAB SAB Ectopic Multiple Livin g Live Births 2 1 1 Date Outcome GA Total Labor Labor/2nd/3rd Weight Sex Type Anes PTL Nehal A1 A5 Name Clin AB Para Last Filed Vital Signs Vital Sign Reading Time Taken Comments Blood Pressure 134/86 03/11/2025 5:32 PM CDT Pulse 77 03/11/2025 5:32 PM CDT Temperature 37 C (98.6 F) 03/11/2025 5:32 PM CDT Respiratory Rate 16 03/11/2025 5:32 PM CDT Oxygen Saturation 98% 03/11/2025 5:32 PM CDT Inhaled Oxygen Concentration - - Weight 140.6 kg (310 lb) 03/11/2025 5:32 PM CDT Height 175.3 cm (5' 9) 03/11/2025 5:32 PM CDT Body Mass Index 45.78 03/11/2025 5:32 PM CDT Plan of Treatment Health Maintenance Due Date Last Done Comments Cervical Cancer Screening 1976 Colon Cancer Screening-Colonoscopy 1976 Depression Screening 1976 Hepatitis C Screening 1976 Hepatitis B Screening 1994 Regular Well Visit/Exam 18-64 1994 Pneumococcal vaccine <65 (1 of 2 - PCV) 11/12/1995 Zoster Vaccine (1 of 2) 11/12/1995 Breast Cancer Screening-Mammogram 02/08/2021 020, 02/09/2020 Influenza Vaccine (#1) 2025 3, 04/20/2022, 06/11/2010 DTaP/Tdap/Td Vaccine (3 - Td or Tdap) 04/14/202707/2017, 04/09/2010 Procedures Procedure Name Priority Date/Time Associated Diagnosis Comments AEROBIC AND ANAEROBIC CULTURE AND GRAM STAIN Routine 03/11/2025 7:16 PM CDT Wound infection from Last 3 Months Results * (ABNORMAL) Aerobic and anaerobic culture and gram stain Wound Leg, right (03/11/2025 7:16 PM CDT) Direct Specimen Exam Stain: No polymorphonuclear leukocytes seen. Abundant Gram Positive Cocci Comment:Testing performed by : [facility], [address] [place]., [address] Report Final Report: Moderate Staphylococcus aureus Methicillin resistant (MRSA) by penicillin binding protein 2a (PBP2a) testing. (.) [facility] Comment:Testing performed by : [facility], [address] [place] [address] Organism STAPHYLOCOCCUS AUREUS СВЕТЛАНА Wound (Leg, right) 03/11/2025 7:16 PM CDT 03/11/2025 11:39 PM CDT Narrative [facility]АН[facility] - 03/15/2025 8:27 AM CDT Specimen received on an ESwab. Testing performed by [facility] ([phone]) Specimens submitted from normally sterile body sites will have all bacterial morphotypes identified. Specimens that contain grossly mixed erick and/or are from body sites that are not normally sterile will be examined for Staphylococcus aureus, Pseudomonas aeruginosa, beta-hemolytic strep, vancomycin-resistant Enterococcus, Bacteroides, Parabacteroides, Clostridium perfringens and fungus. If any of these are isolated, the organism will be reported. Current interpretive data was last revised on 2019. Organism Antibiotic Method Susceptibility Staphylococcus aureus Vancomycin INTERPRETATION Susceptible Staphylococcus aureus Ceftaroline INTERPRETATION Susceptible Staphylococcus aureus Trimethoprim with Sulfamethoxazole INTERPRETATION Susceptible Staphylococcus aureus Linezolid INTERPRETATION Susceptible Staphylococcus aureus Doxycycline INTERPRETATION Susceptible Staphylococcus aureus Clindamycin INTERPRETATION Susceptible Staphylococcus aureus Erythromycin INTERPRETATION Resistant Staphylococcus aureus Oxacillin INTERPRETATION Resistant Staphylococcus aureus Cefazolin INTERPRETATION Resistant Staphylococcus aureus Ceftriaxone INTERPRETATION Resistant us Savanna Fisher NP LAB MICROBIOLOGY - GENERAL ORD ERABLES Final Result СВ[facility]ТЛАН[facility] [id number] [address] Department of Laboratories [place], [place] [id number] from Last [address] [facility] [place] [address] [facility] [place] [address] [facility] Care Teams Rotoformer Backtender Relationship Specialty Start Date End Date Deng Quinonez NP [address] [place] [address] [address] [place] [address] PCP - General 03/11/17 Nicole Oconnell NP [address] [place] [address] [address] [place] [address] Nurse Practitioner Nurse Practitioner 03/26/20 Eze Ovalle MD [facility] [address] [place] [address] Family Medicine 01/03/25
--- OUTSIDE RECORDS SUMMARY | 2025-04-03 09:29 | XMS_ITS | Encounter Summary ---
Author Organization [facility] Address [address] [facility] [place] [address] Care Team Providers Care Cable Operator Name Role Phone Royce Pineda MD Unavailable Eze Ovalle MD Primary Care Provider Alysha Thompson DO Unavailable [phone] Rocye Pineda MD Unavailable [phone] Reason for Visit * Reason Comments Refill Request Encounter Details Date Type Department Care Team (Late st Contact Info) Description 03/31/2025 Refill [facility] Family Medicine [address] [place] [address] [place] [address] Eze Ovalle MD [address] [address] Refill Request Social History Tobacco Use Types Packs/Day Years [...] PM CDT Legal Sex Female 5:20 PM CARD RUNNER Gender Identity Female 03/28/2024 12:07 PM CDT Sexual Orientation Not on file documented as of this encounter Plan of Treatment Upcoming Encounters Date Type Department Care Team (Late st Contact Info) Description 04/05/2025 10:30 AM CDT Office Visit [facility] Management [address] [place] [phone] Chaz Silverio MD [address] [place] [phone] 04/20/2025 2:40 PM CDT Office Visit [facility] - Rheumatology [address] [place] [address], [place] [address] Royce Pineda MD [address] [place] [address] 2L [place] [phone] 04/21/2025 10:30 AM CDT Office Visit [facility] - Neurology [address] [place] [address], [place] [phone] Elle Davey, BOX FINISHER-INSPECTOR ELEVATORS [address] [place] [address] 1L [place] [address] 06/23/2025 1:40 PM CARD RUNNER Office Visit [facility] - Family Medicine [address] [place] [phone] Eze Ovalle MD [address] [place] [phone] documented as of this encounter Visit Diagnoses Diagnosis Left hip pain Pain in joint, pelvic region and thigh Contusion of rib, unspecified laterality, initial encounter documented in this encounter Care Teams Cable Operator Relationship Specialty Start Date End Date Eze Ovalle MD [address] [place] [phone] PCP - General Family Medicine 03/23/23 Alysha Thompson DO [address] 2[address] DIV OF [place] [address] PCP - [facility] [place] 06/03/24 Royce Pineda MD [address] 2L [place] [address] Ehs Teacher Rheumatology 01/27/23 Royce Pineda MD [address] 2[address] [place] [address] Ehs Teacher Rheumatology 03/03/25 documented as of this encounter
--- OUTSIDE RECORDS SUMMARY | 2025-04-03 09:29 | XMS_ITS | Encounter Summary ---
Author Organization [facility] Address [address] [place] [address] Care Team Providers Care Guest Service Agent Name Role Phone Giovanni Paniagua MD Primary Care Provider [phone] Alysha Thompson DO Unavailable [phone] Royce Pineda MD Unavailable Eze Ovalle MD Primary Care Provider [phone] Alysha Thompson DO Unavailable Royce Pineda MD Unavailable Encounter Details Date Type Department Care Team (Late st Contact Info) Description 01/23/2023 Telephone [facility] - Centralized Scheduling [address] [place] [address] Eze Ovalle MD [facility] [address] [place] [address] Social History Tobacco Use Types Packs/Day Years Used Date Smoking Tobacco: Former Cigarettes 0 08/03/1988 - 08/25/2016 Smokeless Tobacco: Never Alcohol Use Standard Drinks/Week Comments Not Currently 0 (1 standard drink = 0.6 oz pur e alcohol) PHQ-2 Answer Date Recorded PHQ2 TOTAL SCORE 4 01/27/2023 Comments No Sex and Gender Information Value Date Recorded Sex Assigned at Female 03/28/2024 12:07 PM CDT Legal Sex Female 5:20 PM SENIOR PRODUCT DEVELOPMENT SCIENTIST Gender Identity Female 03/28/2024 12:07 PM CDT Sexual Orientation Not on file COVID-19 Exposure Response Date Recorded In the last 10 days, have yo u been in contact with someone who was confirmed or suspected to have Coronavirus/COVID-19? No / Unsure 01/15/2023 2:56 PM CDT documented as of this encounter Miscellaneous Notes * Telephone Encounter - Jesu Ruiz - 01/23/2023 12:57 PM CDT FYI- Acute same day video visit Pt called req acute appt. She has been sched 3pm w/ via Video. [phone] documented in this encounter Plan of Treatment Upcoming Encounters Date Type Department Care Team (Late st Contact Info) Description 04/05/2025 10:30 AM CDT Office Visit [facility] - Pain Management [address] [place] [phone] Chaz Silverio MD [address] [place] [phone] 04/20/2025 2:40 PM CDT Office Visit [facility] - Rheumatology [address] [place] [phone] Royce Pineda MD [address] [facility] 2L [place] [phone] 04/21/2025 10:30 AM CDT Office Visit [facility] - Neurology [address] [place] [phone] Elle Davey, UNDERGROUND MINING SECTION FOREMAN-TEAMSITE DEVELOPER [address] [place] [address] 1L [place] [phone] 06/23/2025 1:40 PM SENIOR PRODUCT DEVELOPMENT SCIENTIST Office Visit [facility] - Family Medicine [address] [facility] [place] [address] [place] [address] Eze Ovalle MD [address] [phone] documented as of this encounter Visit Diagnoses Not on filedocumented in this encounter Care Teams Guest Service Agent Relationship Specialty Start Date End Date Giovanni Paniagua MD [address] 2L [place] [phone] PCP - General 03/14/21 03/22/23 Alysha Thompson DO [address] 2L DIV [place] [address] PCP - Attributed-[place] Medicaid [facility] 02/03/22 05/20/24 Eze Ovalle MD [address] [address] PCP - General [facility] Medicine 03/23/23 Alysha Thompson DO [address] 2L DIV [place] [phone] PCP - Attributed-[place] Medicaid [facility] 06/03/24 Royce Pineda MD [address] 2L [place] [phone] Music Industry Internship Rheumatology 01/27/23 Royce Pineda MD [address] 2L [place] [phone] Music Industry Internship Rheumatology 03/03/25 documented as of this encounter
[2025-04-03 09:32] VITALS: BP 137/72; PULSE 68; RESP 18; TEMP 36.1; O2SAT 99
--- OUTSIDE RECORDS SUMMARY | 2025-04-03 09:32 | XMS_ITS | Encounter Summary ---
Author Organization [facility] Address [address] [place] [address] Care Team Providers Care Veterinarian Helper Name Role Phone Alysha Thompson DO Unavailable Royce Pineda MD Unavailable Eze Ovalle MD Primary Care Provider [phone] Alysha Thompson DO Unavailable Royce Pineda MD Unavailable Reason for Visit * Reason Onset Date Comments MEDICATION REFILL 03/31/2023 Encounter Details Date Type Department Care Team (Late st Contact Info) Description 03/31/2023 Refill [facility] - Rheumatology [address] [place] [address], [facility] [place] [phone] Royce Pineda MD [address] [place] [address] [place] [phone] MEDICATION REFILL Social History Tobacco Use Types Packs/Day Years Used Date Smoking Tobacco: Former Cigarettes 0 08/03/1988 - 08/25/2016 Smokeless Tobacco: Never Alcohol Use Standard Drinks/Week Comments Not Currently 0 (1 standard drink = 0.6 oz pur e alcohol) PHQ-2 Answer Date Recorded PHQ2 TOTAL SCORE 2 03/20/2023 Comments No Sex and Gender Information Value Date Recorded Sex Assigned at Female 03/28/2024 12:07 PM CDT Legal Sex Female 5:20 PM FINANCIAL RESERVE CLERK Gender Identity Female 03/28/2024 12:07 PM CDT Sexual Orientation Not on file documented as of this encounter Miscellaneous Notes * Telephone Encounter - Sharmila Crystal - 04/01/2023 9:34 AM CDT Refill Request Crissy Glasgow JOSÉ: 01/27/2023 NOV scheduled: 07/30/2023 LRF: 02/27/2023 Qty Disp: 4 ML # of refills: 3 Allergies: Allergies Allergen Reactions ??? Aspirin Rash Ears ringing, headache, nausea Pended Medication Order: Requested Prescriptions Pending Prescriptions Disp Refills ??? etanercept (Enbrel SureClick) 50 MG/ML auto-injector pen 4 mL 3 documented in this encounter Plan of Treatment Upcoming Encounters Date Type Department Care Team (Late st Contact Info) Description 04/05/2025 10:30 AM CDT Office Visit [facility] - Pain Management [address] [place] [phone] Chaz Silverio MD [address] [place] [phone] 04/20/2025 2:40 PM CDT Office Visit [facility] - Rheumatology [address] [place] [phone] Royce Pineda MD [address] [place] [address] 2L [place] [phone] 04/21/2025 10:30 AM CDT Office Visit [facility] - Neurology [address] [place] [phone] Elle Davey, ARBORER-HYDROGRAPHIC SURVEYOR [address] [place] [address] 1L [place] [phone] 06/23/2025 1:40 PM FINANCIAL RESERVE CLERK Office Visit [facility] - Family Medicine [address], [place] [address] [place] [address] Eze Ovalle MD [address] [place] [phone] [place] [address] documented as of this encounter Visit Diagnoses Diagnosis Ankylosing spondylitis of sacral region (HCC) Sacroiliitis, not elsewhere classified documented in this encounter Care Teams Veterinarian Helper Relationship Specialty Start Date End Date Alysha Thompson DO [address] 2[address] DIV OF [place] [address] PCP - Attributed-[place] Medicaid [place] 02/03/22 05/20/24 Eze Ovalle MD [address] [phone] PCP - General Family Medicine 03/23/23 Alysha Thompson DO [address] 2L DIV [place] [phone] PCP - Attributed-[place] Medicaid [place] 06/03/24 Royce Pineda MD [address] 2L [place] [phone] Horticultural Manager Rheumatology 01/27/23 Royce Pineda MD [address] 2L [place] [phone] Horticultural Manager Rheumatology 03/03/25 documented as of this encounter
--- NOTE | 2025-04-03 09:53 | ED.LOWEXIN ---
HPI - Extremity Injury (Lower) General Chief Complaint: Extremity Injury, Lower Stated Complaint: left baby toe injury Time Seen by Provider: 04/03/25 09:53 Source: patient and RN notes reviewed Mode of arrival: ambulatory Limitations: no limitations History of Present Illness HPI Narrative: 49-year-old female Presents Express Care complaining of injury to left little toe. Patient reports yesterday she was putting on a pair of pants she ruled her toes over urine a popping sensation to her left little toe followed by pain in bruising. Patient denies any other injuries. Patient denies any numbness or tingling. Patient says she can bear weight without difficulty. Patient has not tried anything [id number] to help with patient. Related Data Home Medications ?Medication ?Instructions ?Recorded ?Confirmed ?Last Taken ?Type etanercept 50 mg/mL (1 mL) 50 mg subcut WEEKLY 04/21/23 10/28/23 09/13/23 History subcutaneous pen injector (Enbrel SureClick) mirabegron 25 mg tablet,extended 25 mg PO HS 04/21/23 10/28/23 09/15/23 21:00 History release 24 hr (Myrbetriq) omeprazole 40 mg capsule,delayed 40 mg PO DAILY 04/21/23 10/28/23 09/15/23 06:00 History release rizatriptan 10 mg tablet 10 mg PO ONCE PRN Migraine Headache 04/21/23 10/28/23 09/15/23 06:00 History topiramate 100 mg tablet 100 mg PO BID 04/21/23 10/28/23 09/15/23 21:00 History rosuvastatin 5 mg tablet (Crestor) 5 mg PO DAILY 05/04/23 10/28/23 09/15/23 06:00 History lamotrigine 25 mg tablet 100 mg PO DAILY 09/30/23 10/28/23 Unknown History cariprazine 1.5 mg capsule mg 04/03/25 Unknown History (Vraylar) celecoxib 100 mg capsule mg 04/03/25 Unknown History dicyclomine 20 mg tablet mg 04/03/25 Unknown History erenumab-aooe 70 mg/mL mg subcut 04/03/25 Unknown History subcutaneous auto-injector (Aimovig Autoinjector) estradiol 0.025 mg/24 hr 04/03/25 Unknown History semiweekly transdermal patch lamotrigine 100 mg tablet mg 04/03/25 Unknown History lorazepam 0.5 mg tablet mg 04/03/25 Unknown History mirabegron 50 mg tablet,extended mg PO 04/03/25 Unknown History release 24 hr phenazopyridine 100 mg tablet mg 04/03/25 Unknown History propranolol 60 mg capsule,24 mg PO 04/03/25 Unknown History hr,extended release solifenacin 10 mg tablet mg PO 04/03/25 Unknown History tizanidine 4 mg tablet mg 04/03/25 Unknown History tramadol 50 mg tablet mg 04/03/25 Unknown History trazodone 100 mg tablet mg 04/03/25 Unknown History venlafaxine 75 mg capsule,extended mg PO 04/03/25 Unknown History release 24 hr Allergies Allergy/AdvReac Type Severity Reaction Status Date / Time aspirin AdvReac Mild Nausea Verified 04/03/25 09:39 hydrocodone AdvReac Agitated Verified 04/03/25 09:39 Review of Systems Review of Systems: CONSTITUTIONAL: Denies fever, chills, or sweats. EYES: Denies visual changes, redness, or discharge. ENT: Denies rhinorrhea, congestion, sore throat, or otalgia. CARDIOVASCULAR: Denies chest pain, palpitations, or edema. RESPIRATORY: Denies cough or dyspnea. GASTROINTESTINAL: Denies abdominal pain, nausea, vomiting, or diarrhea. GENITOURINARY: Denies dysuria or hematuria. SKIN: Denies rash, wound, or itching. MUSCULOSKELETAL: Denies back pain, joint pain, or myalgia. Positive for left little toe injury and swelling NEUROLOGIC: Denies headache, numbness, or weakness. PSYCHIATRIC: Denies anxiety or depression. All other systems reviewed are negative, except as documented in HPI. [facility] Past Medical History Medical History Bipolar disorder TORI (obstructive sleep apnea) Hyperlipidemia Screening mammogram for breast cancer Ankylosing hyperostosis Surgical History Surgical History H/O: hysterectomy History of hysteroscopy D & C History of delivery Family History Family History Mother Hypertension Grandparent Breast cancer Diabetes mellitus Father Diabetes mellitus Social History Social History Smoking packs per day: 1 Smoking cigarettes per day: 20.0 Years smoked: 28 Smoking pack-years: 28.00 Smoking status: Never smoker Tobacco type: cigarettes Smoking end date: 08/03/16 Alcohol intake: never Substance use: current Substance use type: marijuana Other substance usage details: daily Lack of Transportation: No Lack of Food: Never True Current Housing: I Have Housing Concerned About Future Housing: No Difficulty Paying Gas/Electric Bills: No Difficulty Paying for Meds: No Currently Unemployed: No Education: High School Diploma/GED Difficulty w/ Childcare or Family Care: No Living arrangements: with family Additional living arrangements comments: MOM Occupation/Education: occupation Gender identity (if verbalized by the patient): Female Sexual Orientation (if Verbalized by the Patient): Straight or Heterosexual Spiritual care concerns: No Comments At the time of my signature, I reviewed and agree with the nursing past medical, surgical, social, and family history. There is no relevant family history pertinent to the patient complaint. Exam Narrative: GENERAL: This is a well-nourished, well-developed adult, in no apparent distress. They are non ill-appearing, nontoxic appearing. HEAD: normocephalic, atraumatic. EYES: Sclera clear/white. Vision is grossly intact. Conjunctiva normal. Extraocular movement intact. EARS: External ears normal Hearing grossly intact. NOSE: External nose normal THROAT: Mucous membranes moist NECK: Neck supple CARDIOVASCULAR: Regular rate and rhythm RESPIRATORY: Respiratory rate normal, respiratory effort nonlabored, no respiratory distress NEURO: awake, alert, and oriented to person, place and time. There were no obvious focal neurologic abnormalities. EXTREMITIES: Left foot: No obvious deformity, injury, swelling, or redness. There is bruising throughout the 5th little toe. Normal range of motion. Left 5th little toe is tender to palpate. Capillary refill less than 3 seconds. Left pedal Pulse 2 +palpable. Normal sensation. Neurovascular status intact distal injury. Patient is able to wiggle her toes. BACK: Nontender without deformity. Course Course Emergency Course: Portions of this record may have been created with voice recognition software Level of Care: Express Care Visit Vital Signs Vital signs: Vital Signs Temperature 97 F L 04/03/25 09:32 Pulse Rate 68 04/03/25 09:32 Respiratory Rate 18 04/03/25 09:32 Blood Pressure 137/72 04/03/25 09:32 Pulse Oximetry 99 04/03/25 09:32 Oxygen Delivery Room Air 04/03/25 09:32 Temperature 97 F L 04/03/25 09:32 Pulse Rate 68 04/03/25 09:32 Respiratory Rate 18 04/03/25 09:32 Blood Pressure 137/72 04/03/25 09:32 Pulse Oximetry 99 04/03/25 09:32 Oxygen Delivery Room Air 04/03/25 09:32 Reviewed MDM - Extremity Injury (Lower) MDM Narrative Medical decision making narrative: Preliminary result of x-ray shows evidence of fracture or acute findings. Likely a toe contusion. There has been a prolonged reading time for the radiology report was elected to let the patient leave and was given supplies with a postop shoe and valerie tape will be contacted with the official results of her x-ray. If there is a fracture she has been educated on how to do valerie taping and wear the postop shoe. Discussed physical exam findings. Advised supportive measures and signs/symptoms to go to the ER. Pt is appropriate for outpt treatment and f/u. Prior to patient leaving the x-ray report is finalized and shows no evidence of fracture or acute findings. Patient was given postop shoe to use for comfort if needed. Differential Diagnosis Differential diagnosis: Likely other (Toe fracture, toe contusion, foot fracture, hematoma) Imaging Data Attestation: I personally reviewed and interpreted this imaging study as follows: My impression: No acute fractures or findings. Radiologist's impression: ITS Impressions Toe X-Ray 04/03/25 11:17 IMPRESSION: No acute osseous abnormality. Critical Care Time Critical Care Time Critical Care Time: No Discharge Plan Discharge Clinical Impression: Contusion of toe Qualifiers: Encounter type: initial encounter Toe: lesser toe Damage to nail status: without damage Laterality: left Qualified Code(s): S90.122A - Contusion of left lesser toe(s) without damage to nail, initial encounter Patient Disposition: Home Condition: Stable Instructions: Foot Contusion (ED) Additional Instructions: You will be contacted with the official results of your toe x-ray. Preliminary report appears to not be fractured. Rest and elevate the leg; bear weight as tolerated Apply ice 15-20 minute intervals several times a day You may take ibuprofen 600 mg to 800 mg every 6-8 hours. Do not exceed more than 800 mg of ibuprofen per dose. Do not exceed more than 3200 mg ibuprofen in a day. You may take up to 1000 mg Tylenol every 6-8 hours. Do not exceed 1000 mg per dose, do exceed more than 4000 mg of Tylenol in a day. 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 Patient Language: Swedish Prescriptions: No Action venlafaxine 75 mg capsule,extended release 24hr PO tizanidine 4 mg tablet propranolol 60 mg capsule,extended release 24 hr PO tramadol 50 mg tablet lorazepam 0.5 mg tablet trazodone 100 mg tablet dicyclomine 20 mg tablet phenazopyridine 100 mg tablet celecoxib 100 mg capsule lamotrigine 100 mg tablet estradiol 0.025 mg/24 hr patch semiweekly solifenacin 10 mg tablet PO mirabegron 50 mg tablet extended release 24 hr PO Vraylar 1.5 mg capsule Aimovig Autoinjector 70 mg/mL auto-injector SUBCUT topiramate 100 mg tablet 100 mg PO BID omeprazole 40 mg capsule,delayed release(DR/EC) 40 mg PO DAILY Myrbetriq 25 mg tablet extended release 24 hr 25 mg PO HS Enbrel SureClick 50 mg/mL (1 mL) pen injector 50 mg subcut WEEKLY Patient Comments: PT TAKES ON THURSDAY rizatriptan 10 mg tablet 10 mg PO ONCE PRN (Reason: Migraine Headache) lamotrigine 25 mg tablet 100 mg PO DAILY rosuvastatin [Crestor] 5 mg Tablet 5 mg PO DAILY Follow-up/Referrals: Adrian Linn DPM [Physician, Podiatry] PHYSICIAN NOT ON STAFF,NONSTAFF [Primary Care Provider] Tony Joe MD [Physician, Orthopedics] Time of Disposition: 11:16
== END 2025-04-03 11:23 | disposition home or self-care (01) ==
DX: S90.122A Contusion of left lesser toe(s) without damage to nail, initial encounter (principal); X58.XXXA Exposure to other specified factors, initial encounter; E78.5 Hyperlipidemia, unspecified; F31.9 Bipolar disorder, unspecified; F12.90 Cannabis use, unspecified, uncomplicated; Z87.891 Personal history of nicotine dependence
CPT/HCPCS: 73660; 99213; G0463